=== PATIENT | female | born 1960 | race Caucasian/White ===

== ENCOUNTER 2018-05-12 17:43 | Outpatient (REF) | payer MEDICARE, MEDICAID, SELFPAY | END 2018-05-12 17:44 | LOC: NCHCN 17:43 | PROVIDERS: PCP Nurse Practitioner Family; Visit Provider Nurse Practitioner Family | DX: R82.79 Other abnormal findings on microbiological examination of urine (principal); F03.90 Unspecified dementia, unspecified severity, without behavioral disturbance, psychotic disturbance, mood disturbance, and anxiety | CPT/HCPCS: 87077; 87086 ==

== ENCOUNTER 2018-05-24 14:16 | Outpatient (REF) | payer MEDICARE, MEDICAID, SELFPAY ==
[2018-05-24 21:28] LABS: Bilirubin Negative (Negative); Blood Negative (Negative); Clarity Clear; Glucose Negative (Negative); Ketones Negative (Negative); Leukocyte Esterase Trace (Negative); Nitrite Negative (Negative); Specific Gravity 1.015 (1.005-1.025); Urobilinogen 0.2 EU/dL (Up TO 0.2)
[2018-05-24 22:06] LABS: WBC Negative HPF (0-5)
[2018-05-24 22:07] LABS: Epithelial Cells Moderate HPF (Negative); RBC Negative (0-2)
[2018-05-24 22:08] LABS: Bacteria Negative HPF (Negative); Casts Negative LPF (Negative); Mucus Negative (Negative); Other Cells Few Transitional (Negative)
[2018-05-24 22:10] LABS: C & S Indicated? No/Sq. Contamination; Crystals Many Amorphous HPF (Negative)
== END 2018-05-24 14:36 ==
LOC: NCHCN 14:16
PROVIDERS: PCP Nurse Practitioner Family; Visit Provider Nurse Practitioner Family
DX: R32 Unspecified urinary incontinence (principal)
CPT/HCPCS: 81003; 81015

== ENCOUNTER 2018-05-27 11:53 | Outpatient (REF) | payer MEDICARE, MEDICAID, SELFPAY | END 2018-05-27 12:13 | LOC: NCHCN 11:53 | PROVIDERS: PCP Nurse Practitioner Family; Visit Provider Nurse Practitioner Family | DX: N39.0 Urinary tract infection, site not specified (principal) | CPT/HCPCS: 87086 ==

== ENCOUNTER 2018-06-09 20:17 | Outpatient (REF) | payer MEDICARE, MEDICAID, SELFPAY | END 2018-06-09 20:37 | LOC: NCHCN 20:17 | PROVIDERS: PCP Nurse Practitioner Family; Visit Provider Nurse Practitioner Family | DX: N39.0 Urinary tract infection, site not specified (principal) | CPT/HCPCS: 87077; 87086; 87186 ==

== ENCOUNTER 2018-06-16 07:05 | Emergency (ER) | payer MEDICARE, MEDICAID, SELFPAY ==
[2018-06-16 07:08] VITALS: BP 90/57; PULSE 61; RESP 12; TEMP 36.8; O2SAT 97
--- NOTE | 2018-06-16 07:16 | W.ED.GENAD ---
Discharge Plan Disposition Patient Disposition: HOME Condition: Stable Discharge Details Chief Complaint: Seizure Clinical Impression: Seizure disorder Reason For Visit: NORMA Primary Care Provider: Andie Redman ED Provider: Brendon Mckeon Home Meds and New Rx's Prescriptions: Continue acetaminophen 325 MG tablet 650 mg PO Q4H PRN RF: 0 CLORTRIMAZOLE 1 % Topical BID RF: 0 trazodone 50 MG tablet 50 mg PO DAILY RF: 0 A&D ointment Topical DAILY RF: 0 hydrocortisone 28.35 GM cream 1 applic Topical DIRECTED RF: 0 bacitracin 3.5 GM ointment 3.5 gm DIRECTED RF: 0 calcium carbonate-simethicone [Maalox Advanced] 1 EACH tablet,chewable 1 ea PO DIRECTED RF: 0 MUCUS RELIEF 600 mg PO PRN RF: 0 Bifidobacterium infantis [Align] 4 MG capsule 4 mg PO DAILY RF: 0 metronidazole [Metrogel Vaginal] 70 GM gel 1 applic VG DAILY RF: 0 No Action carbamide peroxide [Ear Wax Treatment] 15 ML drops 4 drp Otic PRN RF: 0 polyethylene glycol 3350 [Miralax] 17 GM powder in packet 17 gm PO DAILY PRNRF: 0 dimethicone-zinc oxide [Leann Protect] 57 GM cream 57 gm Topical PRN RF: 0 topiramate [Topamax] 100 MG tablet 100 mg PO BID Qty: 60 RF: 11 psyllium husk (with sugar) [Metamucil (with sugar)] 575 GM powder 1 gm PO 1 TSB QD RF: 0 olanzapine 5 MG tablet 5 mg PO HS Qty: 30 RF: 5 trazodone 50 MG tablet 75 mg PO HS RF: 0 diphenhydramine HCl [Benadryl] 25 MG capsule 25 mg PO Q6H PRN RF: 0 carbamide peroxide [Debrox] 15 ML drops 15 ml Otic HS RF: 0 lanolin-mineral oil [Eucerin Original] 500 ML lotion 500 ml Topical BID RF: 0 clonazepam 0.125 MG tablet,disintegrating 0.125 mg PO as directed Qty: 10 RF: 0 perampanel 4 mg tablet 4 mg PO HS Qty: 30 RF: 5 calcium carbonate-vitamin D3 1 EACH tablet 1 ea PO DAILY RF: 0 levothyroxine 100 MCG tablet 100 mcg PO DAILY@0730 RF: 0 ondansetron HCl 4 mg Tablet 4 mg PO QID PRNRF: 0 docusate sodium [Colace] 100 mg Capsule 100 mg PO DAILY RF: 0 metronidazole 1 % Cream 1 applic TOPICAL DAILY RF: 0 guaifenesin 200 mg/5 mL Liquid 400 mg PO Q4H PRNRF: 0 Discharge Instructions Instructions: Recurrent Seizures in Adults (ED) Additional Instructions: Her seiuzre was likely indcued by her uti. She can have klonopin as needed for break through sezures she should follow up with her primary care provider within 1-2 weeks if she has high fevers, severe headaches or persistent vomit return to the emergency department Medical Decision Making <Robert Connor MD - Last Filed: 06/16/18 07:25> 58 yo female with hx of down syndrome, dementia, seizure disorder who comes in with caregivers by ems or seizures. She is on amoxicillin for a uti started this week per caregiver by pcp. She had a partial seizure per caregiver yesterday where she stares and right arm shakes yesterday and resolved after a minute or so. This morning she had 3 episodes lasting about 4 minutes so gave her several doses of oral klonopin which resolved the seizure. She is now back at ther baseline. She is moving all extremities and will intermittently answer some questions with one word or say hello, and is at baseline per the caregiver. She has nofevers or headache or neck stiffenss so doubt genetic physician infection and no signs of trauma, n/v or headache to suggest intracranial mass or tbi so do not feel ct head indicated. Will eval for electrolyte abnormalities and monitor but likely her uti lowered her seizure threshold pt will be signed out to Dr. Mckeon pending labs, if she remains stable and labs unremarkable feel she will be safe for d/c Differential Diagnosis uti, seizure disorder, electrolyte abnormality <Brendon Mckeon DO - Last Filed: 06/16/18 08:19> The patient has returned to her normal baseline. The case is signed out to me by Dr. Connor. Laboratory workup has returned and is benign. With a normal return to her mental baseline status, no significant laboratory abnormalities and normal vital signs I feel that she can be safely discharged home with close follow-up with her PCP and neurologist. I feel her increase in seizures is most likely secondary to her urinary tract infection and antibiotic medication. Recommended continued hydration at home, and close monitoring by family. We discussed red flags for which to return and they understand. I have extensively reviewed the treatment plan and discharge instructions with the patient and their family. I have addressed all patient concerns at this time. The patient and family was made aware of what symptoms to monitor for that would warrant a return to the emergency department. Discussed the plan with the patient and family, they demonstrate verbal understanding and agreement with our assessment and plan at this time. HPI <Robert Connor MD - Last Filed: 06/16/18 07:25> General Mode of arrival: EMS. Date/Time Provider Initiated Documentation: 06/16/18 07:13. Limitations to Documentation: other (dementia, down syndrome). Information obtained by: family (caregiver). History of Present Illness 58 year old F presents to the emergency department with the chief complaint of seizure, described as mild, with intensity rated at 2. Patient started experiencing this hour(s) (2) and it has been now resolved. No relieving factors improve symptom(s), No exacerbating factors reported . Patient did receive the following treatments prior to arrival, other (klonopin) Related Data Home Medications Medication Instructions Recorded Confirmed acetaminophen 650 mg PO Q4H PRN tab-cap NS 10/23/13 06/16/18 carbamide peroxide [Ear Wax 4 drp OTIC PRN script NS 10/23/13 06/16/18 Treatment] Clortrimazole 1 % TOPICAL BID 04/25/15 06/16/18 polyethylene glycol 3350 [Miralax] 17 gm PO DAILY PRN gm 04/25/15 06/16/18 trazodone 50 mg PO DAILY tab-cap 10/01/15 03/04/17 calcium carbonate-vitamin D3 1 ea PO DAILY 05/14/16 06/16/18 levothyroxine 100 mcg PO DAILY@0730 tab 06/19/16 06/16/18 Bifidobacterium infantis [Align] 4 mg PO DAILY 02/25/17 06/16/18 metronidazole [Metrogel Vaginal] 1 applic VG DAILY 02/25/17 03/04/17 dimethicone-zinc oxide [Leann 57 gm TOPICAL PRN 03/02/17 06/16/18 Protect] topiramate [Topamax] 100 mg PO BID #60 tab-cap 07/28/17 06/16/18 bacitracin 3.5 gm DIRECTED 12/16/17 06/16/18 hydrocortisone 1 applic TOPICAL DIRECTED gm 12/16/17 olanzapine 5 mg PO HS #30 tab-cap 12/16/17 06/16/18 psyllium husk (with sugar) 1 gm PO 1 TSB QD 12/16/17 06/16/18 [Metamucil Powder] calcium carbonate-simethicone 1 ea PO DIRECTED tab.chew 03/22/18 [Maalox Advanced] carbamide peroxide [Debrox] 15 ml OTIC HS script 03/22/18 06/16/18 diphenhydramine HCl [Benadryl] 25 mg PO Q6H PRN tab-cap 03/22/18 06/16/18 lanolin-mineral oil [Eucerin 500 ml TOPICAL BID 03/22/18 06/16/18 Original Lotion] trazodone 75 mg PO HS tab-cap 03/22/18 06/16/18 clonazepam 0.125 mg PO as directed #10 tab 04/13/18 06/16/18 perampanel 4 mg tablet 4 mg PO HS #30 tab 06/15/18 06/16/18 docusate sodium [Colace] 100 mg PO DAILY 06/16/18 06/16/18 guaifenesin 400 mg PO Q4H PRN 06/16/18 06/16/18 metronidazole 1 applic TOPICAL DAILY 06/16/18 06/16/18 ondansetron HCl 4 mg PO QID PRN 06/16/18 06/16/18 Previous Rx's Medication Instructions Recorded levothyroxine 100 mcg PO DAILY@0730 tab 06/19/16 topiramate [Topamax] 100 mg PO BID #60 tab-cap 07/28/17 olanzapine 5 mg PO HS #30 tab-cap 12/16/17 clonazepam 0.125 mg PO as directed #10 tab 04/13/18 perampanel 4 mg tablet 4 mg PO HS #30 tab 06/15/18 Allergies Allergy/AdvReac Type Severity Reaction Status Date / Time No Known Allergies Allergy Unverified 06/16/18 07:13 General Stated Complaint: Seizure COMPA: 3 Review of Systems <Robert Connor MD - Last Filed: 06/16/18 07:25> Review of Systems All systems reviewed & are unremarkable except as noted in HPI and below Constitutional Denies chills and Denies fever(s) Cardiovascular Denies dyspnea Respiratory Denies dyspnea Gastrointestinal Denies abdominal pain, Denies nausea and Denies vomiting Musculoskeletal Denies joint swelling Integumentary/Breasts Denies rash Allergic/Immunologic Reports urticaria Exam <Robert Connor MD - Last Filed: 06/16/18 07:25> Const General: no acute distress Orientation: alert HENMT Ears: external ears normal General nose exam: external nose normal Mouth: moist mucous membranes Eyes Pupils: PERRL and other (right pupil larger than left which is chronic and documented in prior charts) Neck Neck: normal visual inspection Resp Effort & Inspection: normal respiratory effort and able to speak in complete sentences Cardio Rate: regular rate Skin General skin exam: no rashes or lesions noted Neuro General: alert Extrem General: normal to inspection Course <Robert Connor MD - Last Filed: 06/16/18 07:25> Vital Signs Temperature 36.8 C 06/16/18 07:08 Pulse 61 06/16/18 07:08 Respiratory Rate 12 06/16/18 07:08 Blood Pressure 90/57 L 06/16/18 07:08 Pulse Oximetry 97 06/16/18 07:08 Temperature 36.8 C 06/16/18 07:08 Temperature Source Skin 06/16/18 07:08 Pulse 61 06/16/18 07:08 Respiratory Rate 12 06/16/18 07:08 Respiratory Effort 06/16/18 07:13 Respiratory Depth Normal 06/16/18 07:13 Respiratory Pattern Normal 06/16/18 07:13 Blood Pressure 90/57 L 06/16/18 07:08 Pulse Oximetry 97 06/16/18 07:08
[2018-06-16 07:40] LABS: Abs Immature Grans 0.03 k/cumm (0.0-0.09); Absolute Basophil Count 0.04 k/cumm (0.0-0.2); Absolute Eosinophil Count 0.04 k/cumm (0.0-0.7); Absolute Lymphocyte Count 1.91 k/cumm (1.2-3.4); Absolute Monocyte Count 0.47 k/cumm (0.11-0.7); Absolute Neutrophil Count 3.61 k/cumm (1.2-6.7); Basophils % 0.7; Eosinophils % 0.7; HCT 43.6 % (36.0-46.0); HGB 14.7 g/dL (12.0-15.5); Immature Grans % 0.5; Lymphocytes % 31.3; Mean Corp. HGB Concentration 33.7 g/dL (32.0-36.0); Mean Corpuscular Hemoglobin 34.7 pg (27.0-33.0); Mean Corpuscular Volume 102.8 fL (80-95); Mean Platelet Volume 9.7 fL (8.0-11.0); Monocytes % 7.7; Neutrophils % 59.1; Platelet Count 162 x1000/uL (130-400); RBC 4.24 m/cumm (4.00-5.20); RBC Distribution Width 14.3 % (11.7-14.6)
[2018-06-16 07:47] LABS: ALT 38 U/L (12-78); AST 28 U/L (15-37); Alkaline Phosphatase 80 U/L (46-116); Anion Gap 5.6 mmol/L (3-11); BUN 19 mg/dL (7-18); Bilirubin, Total 0.4 mg/dL (0.2-1.0); CO2 28.4 mmol/L (21.0-32.0); CREATININE 1.12 mg/dL (0.55-1.02); Calcium 8.6 mg/dL (8.5-10.1); Chloride 108 mmol/L (98-107); Estimated GFR 50.14 (mL/min/1.73m2); Glucose 82 mg/dL (70-100); Potassium 3.8 mmol/L (3.5-5.1); Sodium 142 mmol/L (136-145); Total Protein 6.5 g/dL (6.4-8.2)
== END 2018-06-16 08:31 | disposition home or self-care (01) ==
PROVIDERS: Emergency Medicine; Emergency Provider Student in an Organized Health Care Education/Training Program; PCP Nurse Practitioner Family
DX: G40.909 Epilepsy, unspecified, not intractable, without status epilepticus (principal); N39.0 Urinary tract infection, site not specified; I10 Essential (primary) hypertension; Q90.9 Down syndrome, unspecified
CPT/HCPCS: 36415; 80053; 93005; 99283; 85025; 93010

== ENCOUNTER 2018-06-20 04:04 | Emergency (ER) | payer MEDICARE, MEDICAID, SELFPAY ==
[2018-06-20 04:04] VITALS: BP 99/68; PULSE 60; RESP 13; TEMP 36.4; O2SAT 98
--- NOTE | 2018-06-20 04:22 | W.ED.GENAD ---
Discharge Plan Disposition Patient Disposition: HOME Condition: Stable Discharge Details Chief Complaint: Seizure Clinical Impression: Seizure disorder Reason For Visit: NORMA Primary Care Provider: Andie Redman ED Provider: Robert Connor [place] Meds and New Rx's Prescriptions: Continue acetaminophen 325 MG tablet 650 mg PO Q4H PRN RF: 0 carbamide peroxide [Ear Wax Treatment] 15 ML drops 4 drp Otic PRN RF: 0 polyethylene glycol 3350 [Miralax] 17 GM powder in packet 17 gm PO DAILY PRNRF: 0 CLORTRIMAZOLE 1 % Topical BID RF: 0 trazodone 50 MG tablet 50 mg PO DAILY RF: 0 dimethicone-zinc oxide [Leann Protect] 57 GM cream 57 gm Topical PRN RF: 0 topiramate [Topamax] 100 MG tablet 100 mg PO BID Qty: 60 RF: 11 A&D ointment Topical DAILY RF: 0 hydrocortisone 28.35 GM cream 1 applic Topical DIRECTED RF: 0 bacitracin 3.5 GM ointment 3.5 gm DIRECTED RF: 0 psyllium husk (with sugar) [Metamucil (with sugar)] 575 GM powder 1 gm PO 1 TSB QD RF: 0 olanzapine 5 MG tablet 5 mg PO HS Qty: 30 RF: 5 trazodone 50 MG tablet 75 mg PO HS RF: 0 diphenhydramine HCl [Benadryl] 25 MG capsule 25 mg PO Q6H PRN RF: 0 carbamide peroxide [Debrox] 15 ML drops 15 ml Otic HS RF: 0 lanolin-mineral oil [Eucerin Original] 500 ML lotion 500 ml Topical BID RF: 0 calcium carbonate-simethicone [Maalox Advanced] 1 EACH tablet,chewable 1 ea PO DIRECTED RF: 0 MUCUS RELIEF 600 mg PO PRN RF: 0 perampanel 4 mg tablet 4 mg PO HS Qty: 30 RF: 5 clonazepam 0.125 mg tablet,disintegrating 0.125 mg PO as directed Qty: 20 RF: 1 calcium carbonate-vitamin D3 1 EACH tablet 1 ea PO DAILY RF: 0 levothyroxine 100 MCG tablet 100 mcg PO DAILY@0730 RF: 0 Bifidobacterium infantis [Align] 4 MG capsule 4 mg PO DAILY RF: 0 metronidazole [Metrogel Vaginal] 70 GM gel 1 applic VG DAILY RF: 0 ondansetron HCl 4 mg Tablet 4 mg PO QID PRNRF: 0 docusate sodium [Colace] 100 mg Capsule 100 mg PO DAILY RF: 0 metronidazole 1 % Cream 1 applic TOPICAL DAILY RF: 0 guaifenesin 200 mg/5 mL Liquid 400 mg PO Q4H PRNRF: 0 perampanel [Fycompa] 0.5 mg/mL Suspension PO RF: 0 Discharge Instructions Instructions: Recurrent Seizures in Adults (ED) Discharge Data Discharge Physician: Robert Connor Medical Decision Making 58 yo female with hx of down syndrome, dementia, seizure disorder, who comes in with a seizure descrbied as staring and arm shaking for about 15 or so minutes prior to arrival. Was given klonopin during this and is now at baseline per the caretkaer, patient is alert and makes eye contact, doesn't follow most commands, will intermittently say few words. She has no fevers and is recently treated for uti.She appears well and is afebrile here so doubt air technician infection. No signs of head trauma and no persistent vomit or changes from baseline recently so do not feel head imaging indicated. Will monitor and check for electrolyte abnormalities labs unremarkable and she remains at her baseline, do not feel further w/u indicated at this time. I advised she f/u with her neurologist and return precautions given Differential Diagnosis seizure disorder, electrolyte abnoramlity HPI General Mode of arrival: EMS. Date/Time Provider Initiated Documentation: 06/20/18 04:07. 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 History of Present Illness 58 year old F presents to the emergency department with the chief complaint of seizure, Patient started experiencing this hour(s) (1) and it has been now resolved. No relieving factors improve symptom(s), No exacerbating factors reported . Patient did receive the following treatments prior to arrival, other (klonopin) Related Data Home Medications Medication Instructions Recorded Confirmed acetaminophen 650 mg PO Q4H PRN tab-cap NS 10/23/13 06/20/18 carbamide peroxide [Ear Wax 4 drp OTIC PRN script NS 10/23/13 06/20/18 Treatment] Clortrimazole 1 % TOPICAL BID 04/25/15 06/20/18 polyethylene glycol 3350 [Miralax] 17 gm PO DAILY PRN gm 04/25/15 06/20/18 trazodone 50 mg PO DAILY tab-cap 10/01/15 06/20/18 calcium carbonate-vitamin D3 1 ea PO DAILY 05/14/16 06/20/18 levothyroxine 100 mcg PO DAILY@0730 tab 06/19/16 06/20/18 Bifidobacterium infantis [Align] 4 mg PO DAILY 02/25/17 06/20/18 metronidazole [Metrogel Vaginal] 1 applic VG DAILY 02/25/17 06/20/18 dimethicone-zinc oxide [Leann 57 gm TOPICAL PRN 03/02/17 06/20/18 Protect] topiramate [Topamax] 100 mg PO BID #60 tab-cap 07/28/17 06/20/18 bacitracin 3.5 gm DIRECTED 12/16/17 06/20/18 hydrocortisone 1 applic TOPICAL DIRECTED gm 12/16/17 06/20/18 olanzapine 5 mg PO HS #30 tab-cap 12/16/17 06/20/18 psyllium husk (with sugar) 1 gm PO 1 TSB QD 12/16/17 06/20/18 [Metamucil (with sugar)] calcium carbonate-simethicone 1 ea PO DIRECTED tab.chew 03/22/18 06/20/18 [Maalox Advanced] carbamide peroxide [Debrox] 15 ml OTIC HS script 03/22/18 06/20/18 diphenhydramine HCl [Benadryl] 25 mg PO Q6H PRN tab-cap 03/22/18 06/20/18 lanolin-mineral oil [Eucerin 500 ml TOPICAL BID 03/22/18 06/20/18 Original] trazodone 75 mg PO HS tab-cap 03/22/18 06/20/18 perampanel 4 mg tablet 4 mg PO HS #30 tab 06/15/18 06/20/18 clonazepam 0.125 mg disintegrating 0.125 mg PO as directed #20 tab 06/16/18 06/20/18 tablet docusate sodium [Colace] 100 mg PO DAILY 06/16/18 06/20/18 guaifenesin 400 mg PO Q4H PRN 06/16/18 06/20/18 metronidazole 1 applic TOPICAL DAILY 06/16/18 06/20/18 ondansetron HCl 4 mg PO QID PRN 06/16/18 06/20/18 perampanel [Fycompa] mg PO 06/20/18 Previous Rx's Medication Instructions Recorded levothyroxine 100 mcg PO DAILY@0730 tab 06/19/16 topiramate [Topamax] 100 mg PO BID #60 tab-cap 07/28/17 olanzapine 5 mg PO HS #30 tab-cap 12/16/17 perampanel 4 mg tablet 4 mg PO HS #30 tab 06/15/18 clonazepam 0.125 mg disintegrating 0.125 mg PO as directed #20 tab 06/16/18 tablet Allergies Allergy/AdvReac Type Severity Reaction Status Date / Time No Known Allergies Allergy Unverified 06/20/18 04:07 General Stated Complaint: Seizure COMPA: 3 Review of Systems Review of Systems Unobtainable due to mental condition Constitutional Denies fever(s) Cardiovascular Denies dyspnea Respiratory Denies dyspnea Gastrointestinal Denies vomiting Integumentary/Breasts Denies rash Exam Const General: no acute distress Orientation: alert HENOR Head: normal to inspection Ears: external ears normal General nose exam: external nose normal Mouth: moist mucous membranes Eyes Pupils: PERRL and other (right pupil larger than right pupil, chronic per chart review) Neck Neck: normal visual inspection Resp Effort & Inspection: normal respiratory effort and able to speak in complete sentences Cardio Rate: regular rate Skin General skin exam: no rashes or lesions noted Neuro General: alert Extrem General: normal to inspection Psych Mental Status: mental status grossly normal Course Vital Signs Temperature 36.4 C L 06/20/18 04:04 Pulse 60 06/20/18 04:04 Respiratory Rate 13 06/20/18 04:04 Blood Pressure 99/68 L 06/20/18 04:04 Pulse Oximetry 98 06/20/18 04:04 Temperature 36.4 C L 06/20/18 04:04 Temperature Source Temporal Artery Scan 06/20/18 04:04 Pulse 60 06/20/18 04:04 Respiratory Rate 13 06/20/18 04:04 Respiratory Effort Non-Labored 06/20/18 04:10 Respiratory Depth Normal 06/20/18 04:10 Respiratory Pattern Normal 06/20/18 04:10 Blood Pressure 99/68 L 06/20/18 04:04 Blood Pressure Position Sitting 06/20/18 04:04 Pulse Oximetry 98 06/20/18 04:04 Oxygen Delivery Method Room Air 06/20/18 04:04 Oxygen Flow Rate 0 06/20/18 04:04
--- NOTE | 2018-06-20 04:28 | ED.GENADUL_ITS ---
Discharge Plan Disposition Patient Disposition: HOME Condition: Stable Discharge Details Chief Complaint: Seizure Clinical Impression: Seizure disorder Reason For Visit: NORMA Primary Care Provider: Andie Redman ED Provider: Robert Connor [place] Meds and New Rx's Prescriptions: Continue acetaminophen 325 MG tablet 650 mg PO Q4H PRN RF: 0 carbamide peroxide [Ear Wax Treatment] 15 ML drops 4 drp Otic PRN RF: 0 polyethylene glycol 3350 [Miralax] 17 GM powder in packet 17 gm PO DAILY PRNRF: 0 CLORTRIMAZOLE 1 % Topical BID RF: 0 trazodone 50 MG tablet 50 mg PO DAILY RF: 0 dimethicone-zinc oxide [Leann Protect] 57 GM cream 57 gm Topical PRN RF: 0 topiramate [Topamax] 100 MG tablet 100 mg PO BID Qty: 60 RF: 11 A&D ointment Topical DAILY RF: 0 hydrocortisone 28.35 GM cream 1 applic Topical DIRECTED RF: 0 bacitracin 3.5 GM ointment 3.5 gm DIRECTED RF: 0 psyllium husk (with sugar) [Metamucil (with sugar)] 575 GM powder 1 gm PO 1 TSB QD RF: 0 olanzapine 5 MG tablet 5 mg PO HS Qty: 30 RF: 5 trazodone 50 MG tablet 75 mg PO HS RF: 0 diphenhydramine HCl [Benadryl] 25 MG capsule 25 mg PO Q6H PRN RF: 0 carbamide peroxide [Debrox] 15 ML drops 15 ml Otic HS RF: 0 lanolin-mineral oil [Eucerin Original] 500 ML lotion 500 ml Topical BID RF: 0 calcium carbonate-simethicone [Maalox Advanced] 1 EACH tablet,chewable 1 ea PO DIRECTED RF: 0 MUCUS RELIEF 600 mg PO PRN RF: 0 perampanel 4 mg tablet 4 mg PO HS Qty: 30 RF: 5 clonazepam 0.125 mg tablet,disintegrating 0.125 mg PO as directed Qty: 20 RF: 1 calcium carbonate-vitamin D3 1 EACH tablet 1 ea PO DAILY RF: 0 levothyroxine 100 MCG tablet 100 mcg PO DAILY@0730 RF: 0 Bifidobacterium infantis [Align] 4 MG capsule 4 mg PO DAILY RF: 0 metronidazole [Metrogel Vaginal] 70 GM gel 1 applic VG DAILY RF: 0 ondansetron HCl 4 mg Tablet 4 mg PO QID PRNRF: 0 docusate sodium [Colace] 100 mg Capsule 100 mg PO DAILY RF: 0 metronidazole 1 % Cream 1 applic TOPICAL DAILY RF: 0 guaifenesin 200 mg/5 mL Liquid 400 mg PO Q4H PRNRF: 0 perampanel [Fycompa] 0.5 mg/mL Suspension PO RF: 0 Discharge Instructions Instructions: Recurrent Seizures in Adults (ED) Discharge Data Discharge Physician: Robert Connor Medical Decision Making 58 yo female with hx of down syndrome, dementia, seizure disorder, who comes in with a seizure descrbied as staring and arm shaking for about 15 or so minutes prior to arrival. Was given klonopin during this and is now at baseline per the caretkaer, patient is alert and makes eye contact, doesn't follow most commands, will intermittently say few words. She has no fevers and is recently treated for uti.She appears well and is afebrile here so doubt electronics department manager infection. No signs of head trauma and no persistent vomit or changes from baseline recently so do not feel head imaging indicated. Will monitor and check for electrolyte abnormalities labs unremarkable and she remains at her baseline, do not feel further w/u indicated at this time. I advised she f/u with her neurologist and return precautions given Differential Diagnosis seizure disorder, electrolyte abnoramlity HPI General Mode of arrival: EMS . Date/Time Provider Initiated Documentation: 06/20/18 04:07 . 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 History of Present Illness 58 year old F presents to the emergency department with the chief complaint of seizure, Patient started experiencing this hour(s) (1) and it has been now resolved. No relieving factors improve symptom(s), No exacerbating factors reported . Patient did receive the following treatments prior to arrival, other (klonopin) Related Data Home Medications Medication Instructions Recorded Confirmed acetaminophen 650 mg PO Q4H PRN tab-cap NS 10/23/13 06/20/18 carbamide peroxide [Ear Wax 4 drp OTIC PRN script NS 10/23/13 06/20/18 Treatment] Clortrimazole 1 % TOPICAL BID 04/25/15 06/20/18 polyethylene glycol 3350 [Miralax] 17 gm PO DAILY PRN gm 04/25/15 06/20/18 trazodone 50 mg PO DAILY tab-cap 10/01/15 06/20/18 calcium carbonate-vitamin D3 1 ea PO DAILY 05/14/16 06/20/18 levothyroxine 100 mcg PO DAILY@0730 tab 06/19/16 06/20/18 Bifidobacterium infantis [Align] 4 mg PO DAILY 02/25/17 06/20/18 metronidazole [Metrogel Vaginal] 1 applic VG DAILY 02/25/17 06/20/18 dimethicone-zinc oxide [Leann 57 gm TOPICAL PRN 03/02/17 06/20/18 Protect] topiramate [Topamax] 100 mg PO BID #60 tab-cap 07/28/17 06/20/18 bacitracin 3.5 gm DIRECTED 12/16/17 06/20/18 hydrocortisone 1 applic TOPICAL DIRECTED gm 12/16/17 06/20/18 olanzapine 5 mg PO HS #30 tab-cap 12/16/17 06/20/18 psyllium husk (with sugar) 1 gm PO 1 TSB QD 12/16/17 06/20/18 [Metamucil (with sugar)] calcium carbonate-simethicone 1 ea PO DIRECTED tab.chew 03/22/18 06/20/18 [Maalox Advanced] carbamide peroxide [Debrox] 15 ml OTIC HS script 03/22/18 06/20/18 diphenhydramine HCl [Benadryl] 25 mg PO Q6H PRN tab-cap 03/22/18 06/20/18 lanolin-mineral oil [Eucerin 500 ml TOPICAL BID 03/22/18 06/20/18 Original] trazodone 75 mg PO HS tab-cap 03/22/18 06/20/18 perampanel 4 mg tablet 4 mg PO HS #30 tab 06/15/18 06/20/18 clonazepam 0.125 mg disintegrating 0.125 mg PO as directed #20 tab 06/16/1804/30 tablet docusate sodium [Colace] 100 mg PO DAILY 06/16/18 06/20/18 guaifenesin 400 mg PO Q4H PRN 06/16/18 06/20/18 metronidazole 1 applic TOPICAL DAILY 06/16/18 06/20/18 ondansetron HCl 4 mg PO QID PRN 06/16/18 06/20/18 perampanel [Fycompa] mg PO 06/20/18 Previous Rx's Medication Instructions Recorded levothyroxine 100 mcg PO DAILY@0730 tab 06/19/16 topiramate [Topamax] 100 mg PO BID #60 tab-cap 07/28/17 olanzapine 5 mg PO HS #30 tab-cap 12/16/17 perampanel 4 mg tablet 4 mg PO HS #30 tab 06/15/18 clonazepam 0.125 mg disintegrating 0.125 mg PO as directed #20 tab 06/16/18 tablet Allergies Allergy/AdvReac Type Severity Reaction Status Date / Time No Known Allergies Allergy Unverified 06/20/18 04:07 General Stated Complaint: Seizure COMPA: 3 Review of Systems Review of Systems Unobtainable due to mental condition Constitutional Denies fever(s) Cardiovascular Denies dyspnea Respiratory Denies dyspnea Gastrointestinal Denies vomiting Integumentary/Breasts Denies rash Exam Const General: no acute distress Orientation: alert [place]ENW[place] Head: normal to inspection Ears: external ears normal General nose exam: external nose normal Mouth: moist mucous membranes Eyes Pupils: PERRL and other (right pupil larger than right pupil, chronic per chart review) Neck Neck: normal visual inspection Resp Effort & Inspection: normal respiratory effort and able to speak in complete sentences Cardio Rate: regular rate Skin General skin exam: no rashes or lesions noted Neuro General: alert Extrem General: normal to inspection Psych Mental Status: mental status grossly normal Course Vital Signs Temperature 36.4 C L 06/20/18 04:04 Pulse 60 06/20/18 04:04 Respiratory Rate 13 06/20/18 04:04 Blood Pressure 99/68 L 06/20/18 04:04 Pulse Oximetry 98 06/20/18 04:04 Temperature 36.4 C L 06/20/18 04:04 Temperature Source Temporal Artery Scan 06/20/18 04:04 Pulse 60 06/20/18 04:04 Respiratory Rate 13 06/20/18 04:04 Respiratory Effort Non-Labored 06/20/18 04:10 Respiratory Depth Normal 06/20/18 04:10 Respiratory Pattern Normal 06/20/18 04:10 Blood Pressure 99/68 L 06/20/18 04:04 Blood Pressure Position Sitting 06/20/18 04:04 Pulse Oximetry 98 06/20/18 04:04 Oxygen Delivery Method Room Air 06/20/18 04:04 Oxygen Flow Rate 0 06/20/18 04:04
[2018-06-20 04:40] LABS: Abs Immature Grans 0.02 k/cumm (0.0-0.09); Absolute Basophil Count 0.03 k/cumm (0.0-0.2); Absolute Eosinophil Count 0.05 k/cumm (0.0-0.7); Absolute Lymphocyte Count 1.96 k/cumm (1.2-3.4); Absolute Monocyte Count 0.47 k/cumm (0.11-0.7); Absolute Neutrophil Count 5.02 k/cumm (1.2-6.7); Anion Gap 8.3 mmol/L (3-11); BUN 18 mg/dL (7-18); Basophils % 0.4; CO2 25.7 mmol/L (21.0-32.0); CREATININE 1.02 mg/dL (0.55-1.02); Calcium 8.2 mg/dL (8.5-10.1); Chloride 107 mmol/L (98-107); Eosinophils % 0.7; Estimated GFR 55.86 (mL/min/1.73m2); Glucose 100 mg/dL (70-100); HCT 46.4 % (36.0-46.0); HGB 15.4 g/dL (12.0-15.5); Immature Grans % 0.3; Mean Corp. HGB Concentration 33.2 g/dL (32.0-36.0); Mean Corpuscular Hemoglobin 34.1 pg (27.0-33.0); Mean Corpuscular Volume 102.7 fL (80-95); Mean Platelet Volume 9.8 fL (8.0-11.0); Monocytes % 6.2; Neutrophils % 66.4; Platelet Count 168 x1000/uL (130-400); RBC 4.52 m/cumm (4.00-5.20); RBC Distribution Width 13.9 % (11.7-14.6); Sodium 141 mmol/L (136-145); White Blood Cell Count 7.55 k/cumm (4.4-10.8)
[2018-06-20 06:26] VITALS: BP 99/68; PULSE 60; RESP 13; TEMP 36.4; O2SAT 98
== END 2018-06-20 04:56 | disposition home or self-care (01) ==
PROVIDERS: Emergency Provider Emergency Medicine; PCP Nurse Practitioner Family
DX: G40.909 Epilepsy, unspecified, not intractable, without status epilepticus (principal); I10 Essential (primary) hypertension
CPT/HCPCS: 36415; 80048; 93005; 99284; 85025; 93010

== ENCOUNTER → 2018-06-28 10:36 | Outpatient (BNVA) | payer MEDICARE, MEDICAID, SELFPAY | PROVIDERS: PCP Nurse Practitioner Family; Visit Provider Nurse Practitioner Gerontology | DX: R32 Unspecified urinary incontinence (principal); Z87.440 Personal history of urinary (tract) infections | CPT/HCPCS: 81003; 99204; 99215 ==

== ENCOUNTER 2018-06-28 15:24 | Outpatient (REF) | payer MEDICARE, MEDICAID, SELFPAY | END 2018-06-28 15:44 | LOC: LBN 15:24 | PROVIDERS: PCP Nurse Practitioner Family; Visit Provider Nurse Practitioner Gerontology | DX: Z87.440 Personal history of urinary (tract) infections (principal); N39.0 Urinary tract infection, site not specified | CPT/HCPCS: 87086 ==

== ENCOUNTER 2018-06-30 17:14 | Outpatient (REF) | payer MEDICARE, MEDICAID, SELFPAY ==
[2018-06-30 20:32] LABS: Abs Immature Grans 0.03 k/cumm (0.0-0.09); Absolute Basophil Count 0.04 k/cumm (0.0-0.2); Absolute Eosinophil Count 0.06 k/cumm (0.0-0.7); Absolute Lymphocyte Count 2.57 k/cumm (1.2-3.4); Absolute Monocyte Count 0.48 k/cumm (0.11-0.7); Absolute Neutrophil Count 6.16 k/cumm (1.2-6.7); Basophils % 0.4; Eosinophils % 0.6; HCT 46.4 % (36.0-46.0); HGB 15.9 g/dL (12.0-15.5); Immature Grans % 0.3; Lymphocytes % 27.5; Mean Corp. HGB Concentration 34.3 g/dL (32.0-36.0); Mean Corpuscular Hemoglobin 34.6 pg (27.0-33.0); Mean Corpuscular Volume 101.1 fL (80-95); Mean Platelet Volume 10.3 fL (8.0-11.0); Monocytes % 5.1; Neutrophils % 66.1; Platelet Count 203 x1000/uL (130-400); RBC 4.59 m/cumm (4.00-5.20); RBC Distribution Width 14.4 % (11.7-14.6); White Blood Cell Count 9.34 k/cumm (4.4-10.8)
[2018-06-30 20:56] LABS: ALT 36 U/L (12-78); AST 23 U/L (15-37); Albumin 3.4 g/dL (3.4-5.0); Alkaline Phosphatase 92 U/L (46-116); Anion Gap 8.6 mmol/L (3-11); BUN 16 mg/dL (7-18); Bilirubin, Total 0.2 mg/dL (0.2-1.0); CO2 28.4 mmol/L (21.0-32.0); CREATININE 0.99 mg/dL (0.55-1.02); Calcium 8.7 mg/dL (8.5-10.1); Chloride 107 mmol/L (98-107); Estimated GFR 57.82 (mL/min/1.73m2); Glucose 93 mg/dL (70-100); Potassium 3.8 mmol/L (3.5-5.1); Sodium 144 mmol/L (136-145); TSH (W/Ref FT4) 2.07 uIU/mL (0.358-3.74); Total Protein 6.9 g/dL (6.4-8.2)
== END 2018-06-30 17:34 ==
LOC: NCHCN 17:14
PROVIDERS: PCP Nurse Practitioner Family; Visit Provider Nurse Practitioner Family
DX: R00.1 Bradycardia, unspecified (principal); F03.90 Unspecified dementia, unspecified severity, without behavioral disturbance, psychotic disturbance, mood disturbance, and anxiety; R56.9 Unspecified convulsions; E78.5 Hyperlipidemia, unspecified; E87.1 Hypo-osmolality and hyponatremia; Q90.9 Down syndrome, unspecified
CPT/HCPCS: 80053; 84443; 85025

== ENCOUNTER → 2018-07-05 14:05 | Outpatient (BNVA) | payer MEDICARE, MEDICAID, SELFPAY | PROVIDERS: PCP Nurse Practitioner Family; Visit Provider Psychiatry & Neurology Neurology | DX: G30.0 Alzheimer's disease with early onset (principal); F02.81 Dementia in other diseases classified elsewhere, unspecified severity, with behavioral disturbance | CPT/HCPCS: 99214 ==

== ENCOUNTER 2018-07-05 15:10 | Outpatient (CLI) | payer MEDICARE, MEDICAID, SELFPAY ==
--- NOTE | 2018-07-05 15:10 | DI.CT_ITS ---
SYMPTOMS/DIAGNOSIS: INCREASED SEIZURES/SOMNOLENCE, R56.9 UNSPECIFIED CONVULSIONS NONCONTRAST HEAD CT: Comparison is made with April,. The basal ganglia calcifications are again noted. There is also calcification along the gyri of the posterior occipitoparietal region, also unchanged. No acute hemorrhage, mass or infarct is seen. The ventricles are unchanged in size. IMPRESSION: Stable parenchymal calcifications. No evidence of mass, infarct or hemorrhage.
== END 2018-07-05 15:30 ==
PROVIDERS: PCP Nurse Practitioner Family; Visit Provider Psychiatry & Neurology Neurology
DX: R56.9 Unspecified convulsions (principal); G30.0 Alzheimer's disease with early onset; F02.81 Dementia in other diseases classified elsewhere, unspecified severity, with behavioral disturbance; Q90.9 Down syndrome, unspecified; G40.109 Localization-related (focal) (partial) symptomatic epilepsy and epileptic syndromes with simple partial seizures, not intractable, without status epilepticus
CPT/HCPCS: 99214; 70450

== ENCOUNTER 2018-07-06 02:13 | Outpatient (CLI) | payer MEDICARE, MEDICAID, SELFPAY | END 2018-07-06 02:33 | PROVIDERS: PCP Nurse Practitioner Family; Visit Provider Nurse Practitioner Family | DX: R00.1 Bradycardia, unspecified (principal); I49.1 Atrial premature depolarization; I49.3 Ventricular premature depolarization | CPT/HCPCS: 93225 ==

== ENCOUNTER 2018-07-08 16:39 | Outpatient (CLI) | payer MEDICARE, MEDICAID, SELFPAY ==
--- NOTE | 2018-07-11 16:55 | HOLTER_ITS ---
DATE OF READING: July 11, 2018 48-hour study. Baseline rhythm sinus. Rare single PAC. No SVT or atrial fibrillation. Rare single PVC. One couplet. No VT. Nocturnal heart rates as low at 45-50 bpm, sinus bradycardia. No symptoms. Average 1-minute heart rate 67 bpm, rate 49-126 bpm.
== END 2018-07-08 16:59 ==
PROVIDERS: PCP Nurse Practitioner Family; Visit Provider Nurse Practitioner Family
DX: R00.1 Bradycardia, unspecified (principal); I49.1 Atrial premature depolarization; I49.3 Ventricular premature depolarization
CPT/HCPCS: 93226

== ENCOUNTER 2018-07-11 10:52 | Outpatient (CLI) | payer MEDICARE, MEDICAID, SELFPAY | END 2018-07-11 11:12 | PROVIDERS: PCP Nurse Practitioner Family; Visit Provider Internal Medicine Interventional Cardiology | DX: R00.1 Bradycardia, unspecified (principal); I49.1 Atrial premature depolarization; I49.3 Ventricular premature depolarization | CPT/HCPCS: 93227 ==

== ENCOUNTER 2018-07-14 01:58 | Outpatient (CLI) | payer MEDICARE, MEDICAID, SELFPAY ==
--- NOTE | 2018-07-15 09:14 | PDOC.EEG ---
EEG: [facility] Department of Neurology EEG REPORT Date of Recordin07/14/18 Interpreting Physician: Dr. Ayse Villafana PCP/Referring Provider: Andie Redman NP Reason for study: Ms. Burr is a 58 year-old woman with Down Syndrome, Alzheimer's Dementia, and epilepsy with recent increase in seizure activity and mental status decline. Current Medications: acetaminophen 650 mg PO Q4H PRN tab-cap NS 10/23/13 carbamide peroxide [Ear Wax Treatment] 4 drp OTIC PRN script NS 10/23/13 Clortrimazole 1 % TOPICAL BID 04/25/15 polyethylene glycol 3350 [Miralax] 17 gm PO DAILY PRN gm 04/25/15 trazodone 50 mg PO DAILY tab-cap 10/01/15 calcium carbonate-vitamin D3 1 ea PO DAILY 05/14/16 levothyroxine 100 mcg PO DAILY@0730 tab 06/19/16 Bifidobacterium infantis [Align] 4 mg PO DAILY 02/25/17 metronidazole [Metrogel Vaginal] 1 applic VG DAILY 02/25/17 dimethicone-zinc oxide [Leann Protect] 57 gm TOPICAL PRN 03/02/17 topiramate [Topamax] 100 mg PO BID #60 tab-cap 07/28/17 A&D Ointment 0 TOPICAL DAILY 12/16/17 bacitracin 3.5 gm DIRECTED 12/16/17 hydrocortisone 1 applic TOPICAL DIRECTED gm 12/16/17 psyllium husk (with sugar) [Metamucil (with sugar)] 1 gm PO 1 TSB QD 12/16/17 calcium carbonate-simethicone [Maalox Advanced] 1 ea PO DIRECTED tab.chew 03/22/18 carbamide peroxide [Debrox] 15 ml OTIC HS script 03/22/18 diphenhydramine HCl [Benadryl] 25 mg PO Q6H PRN tab-cap 03/22/18 lanolin-mineral oil [Eucerin Original] 500 ml TOPICAL BID 03/22/18 trazodone 75 mg PO HS tab-cap 03/22/18 docusate sodium [Colace] 100 mg PO DAILY 06/16/18 guaifenesin 400 mg PO Q4H PRN 06/16/18 metronidazole 1 applic TOPICAL DAILY 06/16/18 perampanel [Fycompa] mg PO 06/20/18 clonazepam 0.125 mg disintegrating tablet 0.125 mg PO as directed #20 tab 06/21/18 perampanel 6 mg tablet 6 mg PO HS #90 tab 06/21/18 aluminum-mag hydroxide-simethicone 200 mg-200 mg-20 mg/5 mL oral susp 5 ml PO ONCE PRN 07/05/18 calamine lotion applic TP PRN 07/05/18 olanzapine 5 mg tablet 2.5 mg PO HS tab-cap 07/05/18 METHODS: A 21 channel digitized electroencephalogram was performed in the [facility] Clinical Neurophysiology Laboratory. The 10/20 international system of electrode placement was used and bipolar and referential electrode montages were recorded. In addition to EEG the patient was monitored for EKG and lateral/vertical eye movements. Activation procedures of photic stimulation and hyperventilation were performed if applicable. Video was used during activation procedures and during events where applicable. The duration of the recording was 30 minutes. DESCRIPTION OF EEG: The patient was noted to be awake, drowsy, and asleep during the recording. During maximal wakefulness an 8-Hz posterior background rhythm was present which was poorly-modulated, symmetrical, reactive to eye opening, and of moderate voltage. With eye opening the background activity changed to a low voltage mixture of theta and delta range frequencies. Faster frequencies were present in the bilateral anterior head regions. There was a normal anterior-posterior voltage gradient. During drowsiness, there was attenuation of the posterior dominant background rhythm and vertex waves. Stage II sleep was present with symmetrical sleep spindles and vertex waves. There were occasional, moderate-amplitude, left frontal spike-wave discharges (Fp1>F7). Activating Procedures: Photic stimulation was performed which produced no posterior driving response at various flash frequencies. Hyperventilation was not performed. EKG: EKG revealed normal sinus rhythm. INTERPRETATION: This EEG is abnormal due to: #1. Occasional left frontal spike-wave discharges (Fp1>F7). #2. Mild-moderate generalized slowing throughout with slowing of the posterior dominant rhythm. PRIOR EEG: -February 2015: rare right frontal spike-waves and mild generalized slowing. CLINICAL CORRELATION: This recording represents the interictal expression of a localization-related epilepsy and indicates the patient is at increased risk for partial and secondary tonic-clonic seizures. The background slowing is suggestive of a mild-moderate diffuse cerebral encephalopathy of broad differential including toxic-metabolic etiology. Clinical correlation is advised. Ayse Villafana MD cc: Andie Redman NP
--- NOTE | 2018-07-15 09:22 | PDOC.EEG_ITS ---
EEG: [facility] Department of Neurology EEG REPORT Date of Recordin07/14/18 Interpreting Physician: Dr. Ayse Villafana PCP/Referring Provider: Andie Redman NP Reason for study: Ms. Burr is a 58 year-old woman with Down Syndrome, Alzheimer's Dementia, and epilepsy with recent increase in seizure activity and mental status decline. Current Medications: acetaminophen 650 mg PO Q4H PRN tab-cap NS 10/23/13 carbamide peroxide [Ear Wax Treatment] 4 drp OTIC PRN script NS 10/23/13 Clortrimazole 1 % TOPICAL BID 04/25/15 polyethylene glycol 3350 [Miralax] 17 gm PO DAILY PRN gm 04/25/15 trazodone 50 mg PO DAILY tab-cap 10/01/15 calcium carbonate-vitamin D3 1 ea PO DAILY 05/14/16 levothyroxine 100 mcg PO DAILY@0730 tab 06/19/16 Bifidobacterium infantis [Align] 4 mg PO DAILY 02/25/17 metronidazole [Metrogel Vaginal] 1 applic VG DAILY 02/25/17 dimethicone-zinc oxide [Leann Protect] 57 gm TOPICAL PRN 03/02/17 topiramate [Topamax] 100 mg PO BID #60 tab-cap 07/28/17 A&D Ointment 0 TOPICAL DAILY 12/16/17 bacitracin 3.5 gm DIRECTED 12/16/17 hydrocortisone 1 applic TOPICAL DIRECTED gm 12/16/17 psyllium husk (with sugar) [Metamucil (with sugar)] 1 gm PO 1 TSB QD 12/16/17 calcium carbonate-simethicone [Maalox Advanced] 1 ea PO DIRECTED tab.chew carbamide peroxide [Debrox] 15 ml OTIC HS script 03/22/18 diphenhydramine HCl [Benadryl] 25 mg PO Q6H PRN tab-cap 03/22/18 lanolin-mineral oil [Eucerin Original] 500 ml TOPICAL BID 03/22/18 trazodone 75 mg PO HS tab-cap 03/22/18 docusate sodium [Colace] 100 mg PO DAILY 06/16/18 guaifenesin 400 mg PO Q4H PRN 06/16/18 metronidazole 1 applic TOPICAL DAILY 06/16/18 perampanel [Fycompa] mg PO 06/20/18 clonazepam 0.125 mg disintegrating tablet 0.125 mg PO as directed #20 tab perampanel 6 mg tablet 6 mg PO HS #90 tab 06/21/18 aluminum-mag hydroxide-simethicone 200 mg-200 mg-20 mg/5 mL oral susp 5 ml PO ONCE PRN 07/05/18 calamine lotion applic TP PRN 07/05/18 olanzapine 5 mg tablet 2.5 mg PO HS tab-cap 07/05/18 METHODS: A 21 channel digitized electroencephalogram was performed in the [facility]. The 10/20 international system of electrode placement was used and bipolar and referential electrode montages were recorded. In addition to EEG the patient was monitored for EKG and lateral/vertical eye movements. Activation procedures of photic stimulation and hyperventilation were performed if applicable. Video was used during activation procedures and during events where applicable. The duration of the recording was 30 minutes. DESCRIPTION OF EEG: The patient was noted to be awake, drowsy, and asleep during the recording. During maximal wakefulness an 8-Hz posterior background rhythm was present which was poorly-modulated, symmetrical, reactive to eye opening, and of moderate voltage. With eye opening the background activity changed to a low voltage mixture of theta and delta range frequencies. Faster frequencies were present in the bilateral anterior head regions. There was a normal anterior- posterior voltage gradient. During drowsiness, there was attenuation of the posterior dominant background rhythm and vertex waves. Stage II sleep was present with symmetrical sleep spindles and vertex waves. There were occasional, moderate-amplitude, left frontal spike-wave discharges ( Fp1>F7). Activating Procedures: Photic stimulation was performed which produced no posterior driving response at various flash frequencies. Hyperventilation was not performed. EKG: EKG revealed normal sinus rhythm. INTERPRETATION: This EEG is abnormal due to: #1. Occasional left frontal spike-wave discharges (Fp1>F7). #2. Mild-moderate generalized slowing throughout with slowing of the posterior dominant rhythm. PRIOR EEG: -February 2015: rare right frontal spike-waves and mild generalized slowing. CLINICAL CORRELATION: This recording represents the interictal expression of a localization-related epilepsy and indicates the patient is at increased risk for partial and secondary tonic-clonic seizures. The background slowing is suggestive of a mild -moderate diffuse cerebral encephalopathy of broad differential including toxic- metabolic etiology. Clinical correlation is advised. Ayse Villafana MD cc: Andie Redman NP
== END 2018-07-14 02:18 ==
PROVIDERS: PCP Nurse Practitioner Family; Visit Provider Psychiatry & Neurology Neurology
DX: R56.9 Unspecified convulsions (principal)
CPT/HCPCS: 95819

== ENCOUNTER → 2018-07-15 13:09 | Outpatient (BNVA) | payer MEDICARE, MEDICAID, SELFPAY | PROVIDERS: PCP Nurse Practitioner Family; Visit Provider Psychiatry & Neurology Neurology | DX: R69 Illness, unspecified (principal) ==

== ENCOUNTER → 2018-07-18 10:35 | Outpatient (BNVA) | payer MEDICARE, MEDICAID, SELFPAY | PROVIDERS: PCP Nurse Practitioner Family; Visit Provider Psychiatry & Neurology Neurology | DX: G30.0 Alzheimer's disease with early onset (principal); Q90.9 Down syndrome, unspecified; G40.109 Localization-related (focal) (partial) symptomatic epilepsy and epileptic syndromes with simple partial seizures, not intractable, without status epilepticus; F02.81 Dementia in other diseases classified elsewhere, unspecified severity, with behavioral disturbance | CPT/HCPCS: 99214 ==

== ENCOUNTER 2018-07-19 07:56 | Emergency (ER) | payer MEDICARE, MEDICAID, SELFPAY ==
[2018-07-19] VITALS (23 sets, daily range): BP systolic 99–151; BP diastolic 51–75; PULSE 63–112; RESP 18; TEMP 36.7; O2SAT 91–98
[2018-07-19] MEDS: Normal Saline 1,000 ML 1000 ML IV ×2 (08:20→09:38)
[2018-07-19 08:25] LABS: Abs Immature Grans 0.01 k/cumm (0.0-0.09); Absolute Basophil Count 0.04 k/cumm (0.0-0.2); Absolute Eosinophil Count 0.05 k/cumm (0.0-0.7); Absolute Lymphocyte Count 2.11 k/cumm (1.2-3.4); Absolute Neutrophil Count 4.56 k/cumm (1.2-6.7); Basophils % 0.6; Eosinophils % 0.7; HCT 49.2 % (36.0-46.0); HGB 16.3 g/dL (12.0-15.5); Immature Grans % 0.1; Lymphocytes % 29.8; Mean Corp. HGB Concentration 33.1 g/dL (32.0-36.0); Mean Corpuscular Hemoglobin 34.2 pg (27.0-33.0); Mean Corpuscular Volume 103.1 fL (80-95); Mean Platelet Volume 9.6 fL (8.0-11.0); Monocytes % 4.2; Neutrophils % 64.6; Platelet Count 176 x1000/uL (130-400); RBC 4.77 m/cumm (4.00-5.20); RBC Distribution Width 14.3 % (11.7-14.6); White Blood Cell Count 7.07 k/cumm (4.4-10.8)
[2018-07-19 08:46] LABS: ALT 39 U/L (12-78); AST 26 U/L (15-37); Albumin 3.4 g/dL (3.4-5.0); Alkaline Phosphatase 82 U/L (46-116); Anion Gap 7.9 mmol/L (3-11); BUN 23 mg/dL (7-18); Bilirubin, Total 0.5 mg/dL (0.2-1.0); CO2 28.1 mmol/L (21.0-32.0); CREATININE 1.34 mg/dL (0.55-1.02); Chloride 105 mmol/L (98-107); Estimated GFR 40.77 (mL/min/1.73m2); Glucose 114 mg/dL (70-100); Magnesium 2.2 mg/dL (1.8-2.4); Potassium 3.7 mmol/L (3.5-5.1); Sodium 141 mmol/L (136-145); Total Protein 7.2 g/dL (6.4-8.2)
--- NOTE | 2018-07-19 10:18 | ED.GENADUL_ITS ---
Discharge Plan Disposition Patient Disposition: HOME Condition: Good Discharge Details Chief Complaint: Seizure Clinical Impression: Seizure, Acute dehydration Reason For Visit: [place] Primary Care Provider: Andie Redman ED Provider: Brendon Mckeon Home Meds and New Rx's Prescriptions: No Action topiramate [Topamax] 100 mg tablet 100 mg PO BID Qty: 60 RF: 11 calamine lotion TP PRN RF: 0 alum-mag hydroxide-simeth 200-200-20 mg/5 mL suspension 5 ml PO ONCE PRN (Reason: indigestion) RF: 0 olanzapine 5 mg tablet 2.5 mg PO HS RF: 0 acetaminophen 325 MG tablet 650 mg PO Q4H PRN RF: 0 carbamide peroxide [Ear Wax Treatment] 15 ML drops 4 drp Otic PRN RF: 0 polyethylene glycol 3350 [Miralax] 17 GM powder in packet 17 gm PO DAILY PRNRF: 0 CLORTRIMAZOLE 1 % Topical BID RF: 0 trazodone 50 MG tablet 50 mg PO DAILY RF: 0 dimethicone-zinc oxide [Leann Protect] 57 GM cream 57 gm Topical PRN RF: 0 A&D ointment Topical DAILY RF: 0 hydrocortisone 28.35 GM cream 1 applic Topical DIRECTED RF: 0 bacitracin 3.5 GM ointment 3.5 gm DIRECTED RF: 0 psyllium husk (with sugar) [Metamucil (with sugar)] 575 GM powder 1 gm PO 1 TSB QD RF: 0 trazodone 50 MG tablet 75 mg PO HS RF: 0 diphenhydramine HCl [Benadryl] 25 MG capsule 25 mg PO Q6H PRN RF: 0 carbamide peroxide [Debrox] 15 ML drops 15 ml Otic HS RF: 0 lanolin-mineral oil [Eucerin Original] 500 ML lotion 500 ml Topical BID RF: 0 calcium carbonate-simethicone [Maalox Advanced] 1 EACH tablet,chewable 1 ea PO DIRECTED RF: 0 perampanel 6 mg tablet 6 mg PO HS Qty: 90 RF: 3 clonazepam 0.125 mg tablet,disintegrating 0.125 mg PO as directed Qty: 20 RF: 1 calcium carbonate-vitamin D3 1 EACH tablet 1 ea PO DAILY RF: 0 levothyroxine 100 MCG tablet 100 mcg PO DAILY@0730 RF: 0 Bifidobacterium infantis [Align] 4 MG capsule 4 mg PO DAILY RF: 0 metronidazole [Metrogel Vaginal] 70 GM gel 1 applic VG DAILY RF: 0 docusate sodium [Colace] 100 mg Capsule 100 mg PO DAILY RF: 0 metronidazole 1 % Cream 1 applic TOPICAL DAILY RF: 0 guaifenesin 200 mg/5 mL Liquid 400 mg PO Q4H PRNRF: 0 perampanel [Fycompa] 0.5 mg/mL Suspension PO RF: 0 Discharge Instructions Instructions: Dehydration (ED), Recurrent Seizures in Adults (ED) Additional Instructions: Please drink 8-10 cups of water daily. Please make sure that you are peeing at least 2-3 times per day. Please follow-up as soon as possible with your neurologist. Continue to take your home seizure medications. If you notice any worsening of your symptoms, or any new symptoms such as vomiting, diarrhea, fever, chills, shortness of breath, chest pain, numbness, weakness, or fainting , please return immediately to the emergency department for reevaluation. Please follow up with your primary care provider as soon as possible for reassessment and reevaluation. As always, it was a pleasure participating in your medical care today. Referrals: Ayse Villafana MD [ [facility] STAFF PHYSICIAN] - Discharge Data Discharge Date/Time-TO BE ENTERED AT DEPARTURE: 07/19/18 10:58 Medical Decision Making This is a very pleasant 58-year-old female with a past medical history is of Down syndrome and seizures who regularly takes Fycompa, and Topamax for her seizures. She has had a slight increase in her seizures in the past 1-2 months, as well as some associated infections, including upper respiratory infections. She was recently here in the emergency department and assessed for seizures at that time, she had a CT scan of the head is performed within the last 2 weeks which was normal, she was discharged home with neurology follow-up, she saw neurology less than 24 hours ago, had a EEG performed within the past week. No changes have been made to her medications. Her seizure was very domenico to her normal seizure per family, however it lasted slightly longer than normal however there was a confounding component of her moving during the seizure and being able to respond to commands which would suggest that the seizure actually did not last as long as the suspected 10 minutes or there was a potential focal component which I feel is less likely. Family did note that the patient has not been drinking much over the last 24 hours, and I feel this may be playing into her symptoms. Laboratory workup shows no white count, no signs of bandemia, no signs of significant infection. TSH is normal, creatinine is slightly elevated at 1.34, with a BUN of 23. I feel that this does suggest concern for mild dehydration. Patient was initially mildly tachycardic, blood pressure was slightly low with dry mucous membranes. We did rehydrate the patient with 1 and then a second liter, she is feeling very well after this and has urinated without any difficulty. Urine is not malodorous, however she does suffer from chronic urinary incontinence, and did P in her depends. Dr. Lentz is not yet in her clinic, and with a relatively benign workup, good status after rehydration, normal relatively benign seizure according to family, no signs of focal neurologic deficits, no other significant abnormalities I feel that she can be safely discharged home. I will contact Dr. Lentz when she does get to her clinic and will discuss the case with her at that time. 2: 31 PM Case has been discussed with Dr. Lentz including imaging, physical exam findings, and the patient's clinical history and disposition. All questions were answered. She will be following up with the patient on an outpatient basis HPI General Date/Time Provider Initiated Documentation: 07/19/18 08:05 . HPI Narrative: This is a 58-year-old female with a past medical history of Down syndrome, and seizures for which she takes Topamax, Fycompa, thyroid disease with levothyroxine use, and regular Flagyl for chronic history of infection. She presents today with her caregiver and EMS for seizure. Caregiver states that for today's seizure it occurred this morning. She did not fall or hit her head. There is no trauma. Usually the seizures last around 3-5 minutes, however today family states that it lasted 10 minutes. However they state during the second half of the seizure she was able to look around and respond to some commands. She was given 3 doses of 0.125 Lorazepam intranasally but this did not resolve her seizures. By the time EMS arrived the patient's seizure was ending, and she went into her normal postictal state. She had no bowel or bladder incontinence. No mastication of the tongue or cheeks. By the time the patient was in the ambulance coming to the ER she was back to her normal baseline. Family states that the patient's seizure was otherwise normal for her and not atypical. No other complaints or abnormalities. Family does state over the last month and a half patient has had a few recent infections including pneumonia over 2 weeks ago, and a slight increase in her seizures. She recently was seen by her neurologist less than 24 hours ago, and also had a recent EEG performed by neurology within the past week. No new changes have been made in medications, per the caregiver she has not missed any of her medications. No other complaints at this time. Related Data Home Medications Medication Instructions Recorded Confirmed acetaminophen 650 mg PO Q4H PRN tab-cap NS 10/23/13 07/18/18 carbamide peroxide [Ear Wax 4 drp OTIC PRN script NS 10/23/13 07/19/18 Treatment] Clortrimazole 1 % TOPICAL BID 04/25/15 07/18/18 polyethylene glycol 3350 [Miralax] 17 gm PO DAILY PRN gm 04/25/15 07/19/18 trazodone 50 mg PO DAILY tab-cap 10/01/15 07/19/18 calcium carbonate-vitamin D3 1 ea PO DAILY 05/14/16 07/19/18 levothyroxine 100 mcg PO DAILY@0730 tab 06/19/16 07/19/18 Bifidobacterium infantis [Align] 4 mg PO DAILY 02/25/17 07/18/18 metronidazole [Metrogel Vaginal] 1 applic VG DAILY 02/25/17 07/18/18 dimethicone-zinc oxide [Leann 57 gm TOPICAL PRN 03/02/17 07/19/18 Protect] bacitracin 3.5 gm DIRECTED 12/16/17 07/19/18 hydrocortisone 1 applic TOPICAL DIRECTED gm 12/16/17 07/19/18 psyllium husk (with sugar) 1 gm PO 1 TSB QD 12/16/17 07/19/18 [Metamucil (with sugar)] calcium carbonate-simethicone 1 ea PO DIRECTED tab.chew 03/22/18 07/19/18 [Maalox Advanced] carbamide peroxide [Debrox] 15 ml OTIC HS script 03/22/18 07/19/18 diphenhydramine HCl [Benadryl] 25 mg PO Q6H PRN tab-cap 03/22/18 07/19/18 lanolin-mineral oil [Eucerin 500 ml TOPICAL BID 03/22/18 07/19/18 Original] trazodone 75 mg PO HS tab-cap 03/22/18 07/19/18 docusate sodium [Colace] 100 mg PO DAILY 06/16/18 07/19/18 guaifenesin 400 mg PO Q4H PRN 06/16/18 07/19/18 metronidazole 1 applic TOPICAL DAILY 06/16/18 07/19/18 perampanel [Fycompa] mg PO 06/20/18 07/18/18 clonazepam 0.125 mg disintegrating 0.125 mg PO as directed #20 tab 06/21/1802/28 tablet perampanel 6 mg tablet 6 mg PO HS #90 tab 06/21/18 07/19/18 aluminum-mag hydroxide-simethicone 5 ml PO ONCE PRN 07/05/18 07/18/18 200 mg-200 mg-20 mg/5 mL oral susp calamine lotion applic TP PRN 07/05/18 07/18/18 olanzapine 5 mg tablet 2.5 mg PO HS tab-cap 07/05/18 07/19/18 topiramate 100 mg tablet 100 mg PO BID #60 tab-cap 07/18/18 07/19/18 Previous Rx's Medication Instructions Recorded levothyroxine 100 mcg PO DAILY@0730 tab 06/19/16 clonazepam 0.125 mg disintegrating 0.125 mg PO as directed #20 tab 06/21/18 tablet perampanel 6 mg tablet 6 mg PO HS #90 tab 06/21/18 topiramate 100 mg tablet 100 mg PO BID #60 tab-cap 07/18/18 Allergies Allergy/AdvReac Type Severity Reaction Status Date / Time No Known Allergies Allergy Verified 07/05/18 14:30 General Stated Complaint: Seizure COMPA: 3 Review of Systems Review of Systems All systems reviewed & are unremarkable except as noted in HPI and below Exam Narrative Exam Narrative: 1.Const: Well-nourished, Well-developed, appearing stated age, normal physical findings suggestive of Down syndrome. 2.Eyes: no conjunctival injection, and symmetrical lids. Patient does have evidence of anisocoria, per family that this is chronic and not acute. Right pupil slightly more dilated than left. 3.ENT: Atraumatic external nose and ears. Moist MM. Neck: Symmetric, trachea midline, No thyromegaly. No evidence of tongue or lip or cheek lacerations. No evidence of mastication or bleeding in the mouth. Patient demonstrates good movement of cervical neck. There is no nuchal rigidity, no nuchal tenderness. Patient is able to flex the neck without any difficulty or significant pain. Negative Kernig's and Brudzinski sign. 4.CVS: +S1/S2, No murmurs or gallops. Peripheral pulses 2+ and equal in all extremities. Brisk capillary refill in all extremities. 5.RESP: Unlabored respiratory effort. Clear to auscultation bilaterally. No wheezes rales or rhonchi 6.GI: Soft, Nontender/Nondistended, No hepatosplenomegaly. No guarding or rebound. 7.MSK: Normocephalic/Atraumatic, Extremities w/o deformity or ttp No cyanosis or clubbing, Normal movement of all extremities 8.Skin: Warm, Dry. No rashes or lesions. 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 Sensation grossly intact, no focal neurologic deficits. Normal movements of all extremities, normal strength in all extremities. Neurologic exam is slightly complicated secondary to the patient's chronic mental baseline and Down syndrome. However no focal neurologic deficits are appreciated. 10.Psych:Appropriate mood and affect, and at the patient's baseline per caregiver Course Vital Signs Temperature 36.7 C 07/19/18 07:59 Pulse 71 07/19/18 07:59 Respiratory Rate 18 07/19/18 07:59 Pulse Oximetry 97 07/19/18 07:59 Temperature 36.7 C 07/19/18 07:59 Pulse 71 07/19/18 07:59 Respiratory Rate 18 07/19/18 07:59 Respiratory Effort 07/19/18 08:10 Respiratory Depth Normal 07/19/18 08:10 Respiratory Pattern Normal 07/19/18 08:10 Pulse Oximetry 97 07/19/18 07:59 Oxygen Delivery Method Room Air 07/19/18 07:59 Oxygen Flow Rate 0 07/19/18 07:59 Pain Level 0 11/06/18 07:59 Lab/Test Results Lab/Test Results: Laboratory Tests Range/Units 07/19/18 07/19/18 08:21 08:21 WBC (4.4-10.8) k/cumm 7.07 RBC (4.00-5.20) m/cumm 4.77 Hgb (12.0-15.5) g/dL 16.3 H Hct (36.0-46.0) % 49.2 H MCV (80-95) fL 103.1 H MCH (27.0-33.0) pg 34.2 H MCHC (32.0-36.0) g/dL 33.1 RDW (11.7-14.6) % 14.3 Plt Count (130-400) x1000/uL 176 MPV (8.0-11.0) fL 9.6 Immature Gran % 0.1 Neutrophils % 64.6 Lymphocytes % 29.8 Monocytes % 4.2 Eosinophils % 0.7 Basophils % 0.6 Absolute Neutrophils (1.2-6.7) k/cumm 4.56 Absolute Lymphocytes (1.2-3.4) k/cumm 2.11 Absolute Monocytes (0.11-0.7) k/cumm 0.30 Absolute Eosinophils (0.0-0.7) k/cumm 0.05 Absolute Basophils (0.0-0.2) k/cumm 0.04 Sodium (136-145) mmol/L 141 Potassium (3.5-5.1) mmol/L 3.7 Chloride (98-107) mmol/L 105 Carbon Dioxide (21.0-32.0) mmol/L 28.1 Anion Gap (3-11) mmol/L 7.9 BUN (7-18) mg/dL 23 H Creatinine (0.55-1.02) mg/dL 1.34 H Estimated GFR/1.73 m2 (mL/min/1.73m2) 40.77 Glucose (70-100) mg/dL 114 H Calcium (8.5-10.1) mg/dL 9.0 Magnesium (1.8-2.4) mg/dL 2.2 Total Bilirubin (0.2-1.0) mg/dL 0.5 AST (15-37) U/L 26 ALT (12-78) U/L 39 Alkaline Phosphatase (46-116) U/L 82 Total Protein (6.4-8.2) g/dL 7.2 Albumin (3.4-5.0) g/dL 3.4 TSH (0.358-3.74) uIU/mL 2.50
== END 2018-07-19 10:58 | disposition home or self-care (01) ==
PROVIDERS: Emergency Provider Student in an Organized Health Care Education/Training Program; PCP Nurse Practitioner Family
DX: G40.909 Epilepsy, unspecified, not intractable, without status epilepticus (principal); E86.0 Dehydration; Q90.9 Down syndrome, unspecified
CPT/HCPCS: 36415; 80053; 96360; 96361; 99283; 83735; 84443; 85025

== ENCOUNTER 2018-08-02 07:56 | Emergency (ER) | payer MEDICARE, MEDICAID, SELFPAY ==
[2018-08-02 07:51] VITALS: BP 108/76; PULSE 65; RESP 18; TEMP 36.2; O2SAT 96
--- NOTE | 2018-08-02 07:59 | W.ED.GENAD ---
Discharge Plan Disposition Patient Disposition: HOME Condition: Good Discharge Details Chief Complaint: Seizure Clinical Impression: Seizures Reason For Visit: LILIYAEX Primary Care Provider: Andie Redman ED Provider: Robert Connor [place] Meds and New Rx's Prescriptions: Continue topiramate [Topamax] 100 mg tablet 100 mg PO BID Qty: 60 RF: 11 calamine lotion TP PRN RF: 0 alum-mag hydroxide-simeth 200-200-20 mg/5 mL suspension 5 ml PO ONCE PRN (Reason: indigestion) RF: 0 olanzapine 5 mg tablet 2.5 mg PO HS RF: 0 acetaminophen 325 MG tablet 650 mg PO Q4H PRN RF: 0 carbamide peroxide [Ear Wax Treatment] 15 ML drops 4 drp Otic PRN RF: 0 polyethylene glycol 3350 [Miralax] 17 GM powder in packet 17 gm PO DAILY PRNRF: 0 CLORTRIMAZOLE 1 % Topical BID RF: 0 dimethicone-zinc oxide [Leann Protect] 57 GM cream 57 gm Topical PRN RF: 0 A&D ointment Topical DAILY RF: 0 hydrocortisone 28.35 GM cream 1 applic Topical DIRECTED RF: 0 bacitracin 3.5 GM ointment 3.5 gm DIRECTED RF: 0 psyllium husk (with sugar) [Metamucil (with sugar)] 575 GM powder 1 gm PO 1 TSB QD RF: 0 trazodone 50 MG tablet 75 mg PO HS RF: 0 diphenhydramine HCl [Benadryl] 25 MG capsule 25 mg PO Q6H PRN RF: 0 carbamide peroxide [Debrox] 15 ML drops 15 ml Otic HS RF: 0 lanolin-mineral oil [Eucerin Original] 500 ML lotion 500 ml Topical BID RF: 0 calcium carbonate-simethicone [Maalox Advanced] 1 EACH tablet,chewable 1 ea PO DIRECTED RF: 0 clonazepam 0.125 mg tablet,disintegrating 0.125 mg PO as directed Qty: 20 RF: 1 calcium carbonate-vitamin D3 1 EACH tablet 1 ea PO DAILY RF: 0 levothyroxine 100 MCG tablet 100 mcg PO DAILY@0730 RF: 0 Bifidobacterium infantis [Align] 4 MG capsule 4 mg PO DAILY RF: 0 metronidazole [Metrogel Vaginal] 70 GM gel 1 applic VG DAILY RF: 0 docusate sodium [Colace] 100 mg Capsule 100 mg PO DAILY RF: 0 metronidazole 1 % Cream 1 applic TOPICAL DAILY RF: 0 guaifenesin 200 mg/5 mL Liquid 400 mg PO Q4H PRNRF: 0 topiramate 100 mg Tablet 100 mg Feeding Tube BID RF: 0 perampanel [Fycompa] 8 mg tablet 8 mg PO HS RF: 0 Discharge Instructions Instructions: Recurrent Seizures in Adults (ED) Medical Decision Making 58 yo female with hx of down syndrome and known seizure disorder comes in with possible seizure. Per hx from childcare aide she started to stare to the right and had movement of her eyes, was given lorazepam which broke the seizure and is now at baseline. She is moving all extremities and laughing during exam in no distress. Had recent lab work with no electrolyte abnormaliities. no fevers and appears well systemically so doubt drink box mechanic infection. Do not feel workup indicated at this time for known seizure disorder, advised f/u with her neurologist and return precautions given Differential Diagnosis partial seizure, focal seizure, epilepsy HPI General Mode of arrival: EMS. Date/Time Provider Initiated Documentation: 08/02/18 07:59. Limitations to Documentation: no limitations. Information obtained by: family (sugar refinery supervisor) and EMS. History of Present Illness 58 year old F presents to the emergency department with the chief complaint of possible seizure, Patient started experiencing this hour(s) (1) and it has been now resolved. No relieving factors improve symptom(s), No exacerbating factors reported . Patient notes no other symptoms.. Patient did receive the following treatments prior to arrival, none Related Data Home Medications Medication Instructions Recorded Confirmed acetaminophen 650 mg PO Q4H PRN tab-cap NS 10/23/13 07/18/18 carbamide peroxide [Ear Wax 4 drp OTIC PRN script NS 10/23/13 07/19/18 Treatment] Clortrimazole 1 % TOPICAL BID 04/25/15 07/18/18 polyethylene glycol 3350 [Miralax] 17 gm PO DAILY PRN gm 04/25/15 07/19/18 calcium carbonate-vitamin D3 1 ea PO DAILY 05/14/16 08/02/18 levothyroxine 100 mcg PO DAILY@0730 tab 06/19/16 08/02/18 Bifidobacterium infantis [Align] 4 mg PO DAILY 02/25/17 08/02/18 metronidazole [Metrogel Vaginal] 1 applic VG DAILY 02/25/17 07/18/18 dimethicone-zinc oxide [Leann 57 gm TOPICAL PRN 03/02/17 07/19/18 Protect] bacitracin 3.5 gm DIRECTED 12/16/17 08/02/18 hydrocortisone 1 applic TOPICAL DIRECTED gm 12/16/17 08/02/18 psyllium husk (with sugar) 1 gm PO 1 TSB QD 12/16/17 07/19/18 [Metamucil (with sugar)] calcium carbonate-simethicone 1 ea PO DIRECTED tab.chew 03/22/18 07/19/18 [Maalox Advanced] carbamide peroxide [Debrox] 15 ml OTIC HS script 03/22/18 07/19/18 diphenhydramine HCl [Benadryl] 25 mg PO Q6H PRN tab-cap 03/22/18 07/19/18 lanolin-mineral oil [Eucerin 500 ml TOPICAL BID 03/22/18 07/19/18 Original] trazodone 75 mg PO HS tab-cap 03/22/18 08/02/18 docusate sodium [Colace] 100 mg PO DAILY 06/16/18 07/19/18 guaifenesin 400 mg PO Q4H PRN 06/16/18 07/19/18 metronidazole 1 applic TOPICAL DAILY 06/16/18 08/02/18 clonazepam 0.125 mg disintegrating 0.125 mg PO as directed #20 tab 06/21/18 08/02/18 tablet aluminum-mag hydroxide-simethicone 5 ml PO ONCE PRN 07/05/18 08/02/18 200 mg-200 mg-20 mg/5 mL oral susp calamine lotion applic TP PRN 07/05/18 07/18/18 olanzapine 5 mg tablet 2.5 mg PO HS tab-cap 07/05/18 08/02/18 topiramate 100 mg tablet 100 mg PO BID #60 tab-cap 07/18/18 08/02/18 perampanel [Fycompa] 8 mg PO HS 08/02/18 08/02/18 topiramate 100 mg FEEDING TUBE BID 08/02/18 08/02/18 Previous Rx's Medication Instructions Recorded levothyroxine 100 mcg PO DAILY@0730 tab 06/19/16 clonazepam 0.125 mg disintegrating 0.125 mg PO as directed #20 tab 06/21/18 tablet topiramate 100 mg tablet 100 mg PO BID #60 tab-cap 07/18/18 Allergies Allergy/AdvReac Type Severity Reaction Status Date / Time No Known Allergies Allergy Verified 08/02/18 07:59 General Stated Complaint: Seizure COMPA: 3 Review of Systems Review of Systems Unobtainable due to mental condition and Unobtainable due to (ros obtained from sugar refinery supervisor) Constitutional Denies fever(s) ENT Denies change in voice Cardiovascular Denies dyspnea Respiratory Denies dyspnea Gastrointestinal Denies vomiting Integumentary/Breasts Denies rash Allergic/Immunologic Denies urticaria PFSH Family History Brother No problems noted. 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 (Acute 03/22/18) Down syndrome (Acute 03/22/18) Dementia Down's syndrome Hyperlipemia Hypothyroid Incontinence of bowel Incontinence of urine Seizure disorder Social History adopted: No caregiver/support person: Yes foster care: No household members: caregiver housing: assisted living facility lives independently: No number of children: 0 number of grandchildren: 0 fci: No current occupational status: disabled pets and animals: No Smoking/Tobacco Use Status: Never Exam Const General: no acute distress Orientation: alert HENMT Head: normal to inspection Ears: external ears normal General nose exam: external nose normal Mouth: moist mucous membranes Eyes Pupils: other (right eye 3mm and left eye 1mm, known per chart review and not new) Neck Neck: normal visual inspection Resp Effort & Inspection: normal respiratory effort and able to speak in complete sentences Cardio Rate: regular rate Skin General skin exam: no rashes or lesions noted Neuro General: alert Extrem General: normal to inspection Psych Mental Status: mental status grossly normal Course Vital Signs Temperature 36.2 C L 08/02/18 07:51 Pulse 65 08/02/18 07:51 Respiratory Rate 18 08/02/18 07:51 Blood Pressure 108/76 08/02/18 07:51 Pulse Oximetry 96 08/02/18 07:51 Temperature 36.2 C L 08/02/18 07:51 Pulse 65 08/02/18 07:51 Respiratory Rate 18 08/02/18 07:51 Respiratory Effort 08/02/18 07:58 Respiratory Depth Normal 08/02/18 07:58 Blood Pressure 108/76 08/02/18 07:51 Blood Pressure Position Sitting 08/02/18 07:51 Pulse Oximetry 96 08/02/18 07:51 Oxygen Delivery Method Room Air 08/02/18 07:51 Oxygen Flow Rate 0 08/02/18 07:51 Pain Level 0 08/02/18 07:51
--- NOTE | 2018-08-02 08:09 | ED.GENADUL_ITS ---
Discharge Plan Disposition Patient Disposition: HOME Condition: Good Discharge Details Chief Complaint: Seizure Clinical Impression: Seizures Reason For Visit: LILIYAEX Primary Care Provider: Andie Redman ED Provider: Robert Connor [place] Meds and New Rx's Prescriptions: Continue topiramate [Topamax] 100 mg tablet 100 mg PO BID Qty: 60 RF: 11 calamine lotion TP PRN RF: 0 alum-mag hydroxide-simeth 200-200-20 mg/5 mL suspension 5 ml PO ONCE PRN (Reason: indigestion) RF: 0 olanzapine 5 mg tablet 2.5 mg PO HS RF: 0 acetaminophen 325 MG tablet 650 mg PO Q4H PRN RF: 0 carbamide peroxide [Ear Wax Treatment] 15 ML drops 4 drp Otic PRN RF: 0 polyethylene glycol 3350 [Miralax] 17 GM powder in packet 17 gm PO DAILY PRNRF: 0 CLORTRIMAZOLE 1 % Topical BID RF: 0 dimethicone-zinc oxide [Leann Protect] 57 GM cream 57 gm Topical PRN RF: 0 A&D ointment Topical DAILY RF: 0 hydrocortisone 28.35 GM cream 1 applic Topical DIRECTED RF: 0 bacitracin 3.5 GM ointment 3.5 gm DIRECTED RF: 0 psyllium husk (with sugar) [Metamucil (with sugar)] 575 GM powder 1 gm PO 1 TSB QD RF: 0 trazodone 50 MG tablet 75 mg PO HS RF: 0 diphenhydramine HCl [Benadryl] 25 MG capsule 25 mg PO Q6H PRN RF: 0 carbamide peroxide [Debrox] 15 ML drops 15 ml Otic HS RF: 0 lanolin-mineral oil [Eucerin Original] 500 ML lotion 500 ml Topical BID RF: 0 calcium carbonate-simethicone [Maalox Advanced] 1 EACH tablet,chewable 1 ea PO DIRECTED RF: 0 clonazepam 0.125 mg tablet,disintegrating 0.125 mg PO as directed Qty: 20 RF: 1 calcium carbonate-vitamin D3 1 EACH tablet 1 ea PO DAILY RF: 0 levothyroxine 100 MCG tablet 100 mcg PO DAILY@0730 RF: 0 Bifidobacterium infantis [Align] 4 MG capsule 4 mg PO DAILY RF: 0 metronidazole [Metrogel Vaginal] 70 GM gel 1 applic VG DAILY RF: 0 docusate sodium [Colace] 100 mg Capsule 100 mg PO DAILY RF: 0 metronidazole 1 % Cream 1 applic TOPICAL DAILY RF: 0 guaifenesin 200 mg/5 mL Liquid 400 mg PO Q4H PRNRF: 0 topiramate 100 mg Tablet 100 mg Feeding Tube BID RF: 0 perampanel [Fycompa] 8 mg tablet 8 mg PO HS RF: 0 Discharge Instructions Instructions: Recurrent Seizures in Adults (ED) Medical Decision Making 58 yo female with hx of down syndrome and known seizure disorder comes in with possible seizure. Per hx from wound care nurse she started to stare to the right and had movement of her eyes, was given lorazepam which broke the seizure and is now at baseline. She is moving all extremities and laughing during exam in no distress. Had recent lab work with no electrolyte abnormaliities. no fevers and appears well systemically so doubt instructional resource teacher infection. Do not feel workup indicated at this time for known seizure disorder, advised f/u with her neurologist and return precautions given Differential Diagnosis partial seizure, focal seizure, epilepsy HPI General Mode of arrival: EMS . Date/Time Provider Initiated Documentation: 08/02/18 07:59 . Limitations to Documentation: no limitations . Information obtained by: family (cable engineer) and EMS . History of Present Illness 58 year old F presents to the emergency department with the chief complaint of possible seizure, Patient started experiencing this hour(s) (1) and it has been now resolved. No relieving factors improve symptom(s), No exacerbating factors reported . Patient notes no other symptoms.. Patient did receive the following treatments prior to arrival, none Related Data Home Medications Medication Instructions Recorded Confirmed acetaminophen 650 mg PO Q4H PRN tab-cap NS 10/23/13 07/18/18 carbamide peroxide [Ear Wax 4 drp OTIC PRN script NS 10/23/13 07/19/18 Treatment] Clortrimazole 1 % TOPICAL BID 04/25/15 07/18/18 polyethylene glycol 3350 [Miralax] 17 gm PO DAILY PRN gm 04/25/15 07/19/18 calcium carbonate-vitamin D3 1 ea PO DAILY 05/14/16 08/02/18 levothyroxine 100 mcg PO DAILY@0730 tab 06/19/16 08/02/18 Bifidobacterium infantis [Align] 4 mg PO DAILY 02/25/17 08/02/18 metronidazole [Metrogel Vaginal] 1 applic VG DAILY 02/25/17 07/18/18 dimethicone-zinc oxide [Leann 57 gm TOPICAL PRN 03/02/17 07/19/18 Protect] bacitracin 3.5 gm DIRECTED 12/16/17 08/02/18 hydrocortisone 1 applic TOPICAL DIRECTED gm 12/16/17 08/02/18 psyllium husk (with sugar) 1 gm PO 1 TSB QD 12/16/17 07/19/18 [Metamucil (with sugar)] calcium carbonate-simethicone 1 ea PO DIRECTED tab.chew 03/22/18 07/19/18 [Maalox Advanced] carbamide peroxide [Debrox] 15 ml OTIC HS script 03/22/18 07/19/18 diphenhydramine HCl [Benadryl] 25 mg PO Q6H PRN tab-cap 03/22/18 07/19/18 lanolin-mineral oil [Eucerin 500 ml TOPICAL BID 03/22/18 07/19/18 Original] trazodone 75 mg PO HS tab-cap 03/22/18 08/02/18 docusate sodium [Colace] 100 mg PO DAILY 06/16/18 07/19/18 guaifenesin 400 mg PO Q4H PRN 06/16/18 07/19/18 metronidazole 1 applic TOPICAL DAILY 06/16/18 08/02/18 clonazepam 0.125 mg disintegrating 0.125 mg PO as directed #20 tab 06/21/18 tablet aluminum-mag hydroxide-simethicone 5 ml PO ONCE PRN 07/05/18 08/02/18 200 mg-200 mg-20 mg/5 mL oral susp calamine lotion applic TP PRN 07/05/18 07/18/18 olanzapine 5 mg tablet 2.5 mg PO HS tab-cap 07/05/18 08/02/18 topiramate 100 mg tablet 100 mg PO BID #60 tab-cap 07/18/18 08/02/18 perampanel [Fycompa] 8 mg PO HS 08/02/18 08/02/18 topiramate 100 mg FEEDING TUBE BID 08/02/18 08/02/18 Previous Rx's Medication Instructions Recorded levothyroxine 100 mcg PO DAILY@0730 tab 06/19/16 clonazepam 0.125 mg disintegrating 0.125 mg PO as directed #20 tab 06/21/18 tablet topiramate 100 mg tablet 100 mg PO BID #60 tab-cap 07/18/18 Allergies Allergy/AdvReac Type Severity Reaction Status Date / Time No Known Allergies Allergy Verified 08/02/18 07:59 General Stated Complaint: Seizure COMPA: 3 Review of Systems Review of Systems Unobtainable due to mental condition and Unobtainable due to (ros obtained from cable engineer) Constitutional Denies fever(s) ENT Denies change in voice Cardiovascular Denies dyspnea Respiratory Denies dyspnea Gastrointestinal Denies vomiting Integumentary/Breasts Denies rash Allergic/Immunologic Denies urticaria PFSH Family History Brother No problems noted. 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 (Acute 03/22/18) Down syndrome (Acute 03/22/18) Dementia Down's syndrome Hyperlipemia Hypothyroid Incontinence of bowel Incontinence of urine Seizure disorder Social History adopted: No caregiver/support person: Yes foster care: No household members: caregiver housing: assisted living facility lives independently: No number of children: 0 number of grandchildren: 0 mcc: No current occupational status: disabled pets and animals: No Smoking/Tobacco Use Status: Never Exam Const General: no acute distress Orientation: alert HENMT Head: normal to inspection Ears: external ears normal General nose exam: external nose normal Mouth: moist mucous membranes Eyes Pupils: other (right eye 3mm and left eye 1mm, known per chart review and not new) Neck Neck: normal visual inspection Resp Effort & Inspection: normal respiratory effort and able to speak in complete sentences Cardio Rate: regular rate Skin General skin exam: no rashes or lesions noted Neuro General: alert Extrem General: normal to inspection Psych Mental Status: mental status grossly normal Course Vital Signs Temperature 36.2 C L 08/02/18 07:51 Pulse 65 08/02/18 07:51 Respiratory Rate 18 08/02/18 07:51 Blood Pressure 108/76 08/02/18 07:51 Pulse Oximetry 96 08/02/18 07:51 Temperature 36.2 C L 08/02/18 07:51 Pulse 65 08/02/18 07:51 Respiratory Rate 18 08/02/18 07:51 Respiratory Effort 08/02/18 07:58 Respiratory Depth Normal 08/02/18 07:58 Blood Pressure 108/76 08/02/18 07:51 Blood Pressure Position Sitting 08/02/18 07:51 Pulse Oximetry 96 08/02/18 07:51 Oxygen Delivery Method Room Air 08/02/18 07:51 Oxygen Flow Rate 0 08/02/18 07:51 Pain Level 0 08/02/18 07:51
[2018-08-02 08:20] VITALS: BP 108/76; PULSE 65; RESP 18; TEMP 36.2; O2SAT 96
== END 2018-08-02 08:13 | disposition home or self-care (01) ==
PROVIDERS: Emergency Provider Emergency Medicine; PCP Nurse Practitioner Family
DX: G40.909 Epilepsy, unspecified, not intractable, without status epilepticus (principal); Q90.9 Down syndrome, unspecified; I10 Essential (primary) hypertension
CPT/HCPCS: 99283

== ENCOUNTER → 2018-08-03 09:02 | Outpatient (BNVA) | payer MEDICARE, MEDICAID, SELFPAY | PROVIDERS: PCP Nurse Practitioner Family; Referring Provider Nurse Practitioner Family; Visit Provider Student in an Organized Health Care Education/Training Program | DX: R00.1 Bradycardia, unspecified (principal); Q90.9 Down syndrome, unspecified | CPT/HCPCS: 99203; 99215 ==

== ENCOUNTER 2018-08-10 12:16 | Emergency (ER) | payer MEDICARE, MEDICAID, SELFPAY ==
--- NOTE | 2018-08-10 12:16 | W.ED.GENAD ---
Discharge Plan Disposition Patient Disposition: HOME Condition: Fair Discharge Details Chief Complaint: Seizure Clinical Impression: Seizures Reason For Visit: NORMA Primary Care Provider: Andie Redman ED Provider: Cecy Grace Home Meds and New Rx's Prescriptions: Continue topiramate [Topamax] 100 mg tablet 100 mg PO BID Qty: 60 RF: 11 calamine lotion TP PRN RF: 0 alum-mag hydroxide-simeth 200-200-20 mg/5 mL suspension 5 ml PO ONCE PRN (Reason: indigestion) RF: 0 olanzapine 5 mg tablet 2.5 mg PO HS RF: 0 acetaminophen 325 MG tablet 650 mg PO Q4H PRN RF: 0 carbamide peroxide [Ear Wax Treatment] 15 ML drops 4 drp Otic PRN RF: 0 polyethylene glycol 3350 [Miralax] 17 GM powder in packet 17 gm PO DAILY PRNRF: 0 CLORTRIMAZOLE 1 % Topical BID RF: 0 dimethicone-zinc oxide [Leann Protect] 57 GM cream 57 gm Topical PRN RF: 0 A&D ointment Topical DAILY RF: 0 hydrocortisone 28.35 GM cream 1 applic Topical DIRECTED RF: 0 bacitracin 3.5 GM ointment 3.5 gm DIRECTED RF: 0 psyllium husk (with sugar) [Metamucil (with sugar)] 575 GM powder 1 gm PO 1 TSB QD RF: 0 trazodone 50 MG tablet 75 mg PO HS RF: 0 diphenhydramine HCl [Benadryl] 25 MG capsule 25 mg PO Q6H PRN RF: 0 carbamide peroxide [Debrox] 15 ML drops 15 ml Otic HS RF: 0 lanolin-mineral oil [Eucerin Original] 500 ML lotion 500 ml Topical BID RF: 0 calcium carbonate-simethicone [Maalox Advanced] 1 EACH tablet,chewable 1 ea PO DIRECTED RF: 0 clonazepam 0.125 mg tablet,disintegrating 0.125 mg PO as directed Qty: 20 RF: 1 lacosamide [Vimpat] 50 mg tablet 50 mg PO BID Qty: 60 RF: 3 calcium carbonate-vitamin D3 1 EACH tablet 1 ea PO DAILY RF: 0 levothyroxine 100 MCG tablet 100 mcg PO DAILY@0730 RF: 0 Bifidobacterium infantis [Align] 4 MG capsule 4 mg PO DAILY RF: 0 metronidazole [Metrogel Vaginal] 70 GM gel 1 applic VG DAILY RF: 0 docusate sodium [Colace] 100 mg Capsule 100 mg PO DAILY RF: 0 metronidazole 1 % Cream 1 applic TOPICAL DAILY RF: 0 guaifenesin 200 mg/5 mL Liquid 400 mg PO Q4H PRNRF: 0 topiramate 100 mg Tablet 100 mg Feeding Tube BID RF: 0 perampanel [Fycompa] 8 mg tablet 8 mg PO HS RF: 0 Discharge Instructions Instructions: Recurrent Seizures in Adults (ED) Additional Instructions: Encourage hydration. Please continue medications as previously prescribed. Vimpat has been called into local pharmacy by Dr. Lentz as discussed for seizure disorder. Jolynn will need follow-up with Dr. Dustin Coats as well as her primary care provider. I would like for her to see these providers in the next 2 weeks for reevaluation and discuss medications as side effects is a concern. If she develops new or worsening symptoms please seek care urgently once again. Referrals: Andie Redman [Primary Care Provider] - Discharge Data Discharge Date/Time-TO BE ENTERED AT DEPARTURE: 08/10/18 14:31 Medical Decision Making Patient 58-year-old female, accompanied by caregiver and brought in via EMS, with chief complaint of seizure. Patient has history of seizures, early onset Alzheimer's, Down syndrome, hyperlipidemia, hypothyroidism. For the past 3 months, patient's seizures have been increasing and changing per the caregiver. Patient was seen here 4 times over the past 2 months with complaints of seizures. Is there protocol to transfer the patient with a seizure over 5 minutes. Reported to the seizure lasted approximately 6 minutes. They did use the sublingual clonazepam which typically works well for her and when EMS arrived patient was in a postictal state. Caregiver reports that patient is back to baseline although does continue to appear fatigued. She reports this is typical for her this far out from procedure. Did not strike her head. No injury. I do not see any evidence of trauma on exam. Patient is nonverbal at baseline making history difficult however caregiver is quite knowledgeable on the patient's history. Caregiver reports she been getting her medications as prescribed. Prior to myself he can evaluate the patient, was contacted by Dr. Lentz. I did instruct and was contacted by medic who was concerned for the frequency of transfer as a cause for seizures. Dr. Lentz advised that there is been hesitancy to change medication on the part of the guardian as the patient has not responded well to all medications historically. However, she did advise beginning the patient on Vimpat reports she will call this into the local pharmacy for the patient. Will obtain baseline labs. Patient is not localizing any discomfort. Vital signs within normal limits. Blood pressure noted be slightly low at 94/62 but this is within normal for the patient. Spoke with Anna, patient's guardian, regarding Jolynn's seizure and recommendations of Dr. Cabrera. She reports they have been hesitant to add more medications as she has noted a decline in her physical ability to ambulate. They are concerned that this is linked to medication. However, I also discussed with her that this tube may be progression of disease and being able to pinpoint if this is secondary to the medication versus the progression is leading to the increase in medication is difficult. She seems more concerned with psychiatric medications the patient is on and has been requesting that some of these be lowered. Advised at this point this is not some and that would be completed to the emergency department. Rather, this would need to be discussion with her psychiatrist as well as primary care. Guardian advised that she and the patient's living facility where he will arrange for follow-up with primary care, neurology as well as psychiatry to discuss medications. She does agreed to the trial of Vimpat that was advised by Dr. Lentz. Laboratory evaluation without signficant abnormality. No evidence of infection. Discussed findings with direct care professional. Discussed patient's need for follow-up to discuss medication changes further. They will arrange for patient to begin medication as advised by Dr. Lentz. Will also arrange for the f/u with PCP and psychiatrist to discuss medication changes as they are hoping to wean the patient off of other medications. We discussed new/wrosening symptoms and when to seek care urgently once again. All of their quetions and concerns were addressed, they are in agreement with this plan. HPI General Mode of arrival: EMS. Date/Time Provider Initiated Documentation: 08/10/18 12:25. Limitations to Documentation: altered mental status. Information obtained by: EMS (EMS and direct care professional are present and giving us historical information). HPI Narrative: Patient is a 58 year old female presenting today after 6 minutes seizure. This was treated with sublingual clonazepam given by care givers. EMS reports that she was postictal at the time of their presentation. Patient has had increasing seziures for the past [address] Cabrera, was seen last week. Secondary to patient's medical history including early Alzheimer's and Down Syndrome, history is difficult to obtain although direct care professional is very well informed and helpful. Related Data Home Medications Medication Instructions Recorded Confirmed acetaminophen 650 mg PO Q4H PRN tab-cap NS 10/23/13 08/03/18 carbamide peroxide [Ear Wax 4 drp OTIC PRN script NS 10/23/13 08/03/18 Treatment] Clortrimazole 1 % TOPICAL BID 04/25/15 08/03/18 polyethylene glycol 3350 [Miralax] 17 gm PO DAILY PRN gm 04/25/15 08/03/18 calcium carbonate-vitamin D3 1 ea PO DAILY 05/14/16 08/03/18 levothyroxine 100 mcg PO DAILY@0730 tab 06/19/16 08/03/18 Bifidobacterium infantis [Align] 4 mg PO DAILY 02/25/17 08/03/18 metronidazole [Metrogel Vaginal] 1 applic VG DAILY 02/25/17 08/03/18 dimethicone-zinc oxide [Leann 57 gm TOPICAL PRN 03/02/17 08/03/18 Protect] bacitracin 3.5 gm DIRECTED 12/16/17 08/03/18 hydrocortisone 1 applic TOPICAL DIRECTED gm 12/16/17 08/03/18 psyllium husk (with sugar) 1 gm PO 1 TSB QD 12/16/17 08/03/18 [Metamucil (with sugar)] calcium carbonate-simethicone 1 ea PO DIRECTED tab.chew 03/22/18 08/03/18 [Maalox Advanced] carbamide peroxide [Debrox] 15 ml OTIC HS script 03/22/18 08/03/18 diphenhydramine HCl [Benadryl] 25 mg PO Q6H PRN tab-cap 03/22/18 08/03/18 lanolin-mineral oil [Eucerin 500 ml TOPICAL BID 03/22/18 08/03/18 Original] trazodone 75 mg PO HS tab-cap 03/22/18 08/03/18 docusate sodium [Colace] 100 mg PO DAILY 06/16/18 08/03/18 guaifenesin 400 mg PO Q4H PRN 06/16/18 08/03/18 metronidazole 1 applic TOPICAL DAILY 06/16/18 08/03/18 clonazepam 0.125 mg disintegrating 0.125 mg PO as directed #20 tab 06/21/18 08/03/18 tablet aluminum-mag hydroxide-simethicone 5 ml PO ONCE PRN 07/05/18 08/03/18 200 mg-200 mg-20 mg/5 mL oral susp calamine lotion applic TP PRN 07/05/18 08/03/18 olanzapine 5 mg tablet 2.5 mg PO HS tab-cap 07/05/18 08/03/18 topiramate 100 mg tablet 100 mg PO BID #60 tab-cap 07/18/18 08/03/18 perampanel [Fycompa] 8 mg PO HS 08/02/18 08/03/18 topiramate 100 mg FEEDING TUBE BID 08/02/18 08/03/18 lacosamide 50 mg tablet 50 mg PO BID #60 tab 08/10/18 Previous Rx's Medication Instructions Recorded levothyroxine 100 mcg PO DAILY@0730 tab 06/19/16 clonazepam 0.125 mg disintegrating 0.125 mg PO as directed #20 tab 06/21/18 tablet topiramate 100 mg tablet 100 mg PO BID #60 tab-cap 07/18/18 lacosamide 50 mg tablet 50 mg PO BID #60 tab 08/10/18 Allergies Allergy/AdvReac Type Severity Reaction Status Date / Time No Known Allergies Allergy Verified 08/10/18 12:23 General COMPA: 3 Review of Systems Review of Systems Unobtainable due to mental condition [facility] Social History adopted: No caregiver/support person: Yes foster care: No household members: caregiver housing: assisted living facility lives independently: No number of children: 0 number of grandchildren: 0 [place] [facility]: No current occupational status: disabled pets and animals: No Smoking/Tobacco Use Status: Never Exam Const General: cooperative, comfortable, no acute distress, well developed and well groomed Nutritional Appearance: well nourished and overweight Orientation: alert, awake and other (patient is nonverbal at baseline) [facility] Head: normal to inspection, no palpable skull fracture and atraumatic Ears: hearing grossly normal bilaterally and external ears normal General nose exam: external nose normal Mouth: oral mucosae normal, lip normal and tongue normal (no evidence of trauma) Eyes General: appearance abnormal, both eyes (right pupil is larger than left, direct care professional reports this is typical and unchanged from baseline) Alignment and Position: alignment normal EOM: EOM intact bilaterally Neck Neck: normal visual inspection and no lymphadenopathy Resp Effort & Inspection: normal respiratory effort, able to speak in complete sentences and no respiratory distress Auscultation: clear to auscultation bilaterally, no rales, no rhonchi and no wheezes Cardio Rate: regular rate Rhythm: regular rhythm Heart Sounds: S1 normal and S2 normal GI Inspection: normal to inspection, no abdominal wall ecchymosis, no edema and non-distended Palpation: soft, not firm, no guarding and nontender Auscultation: normal bowel sounds Skin General skin exam: no rashes or lesions noted Trauma: no lacerations or abrasions Neuro General: alert, awake and gait abnormal (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
[2018-08-10 12:18] VITALS: BP 94/62; PULSE 74; RESP 16; TEMP 36.6; O2SAT 97
--- NOTE | 2018-08-10 12:38 | ED.GENADUL_ITS ---
Discharge Plan Disposition Patient Disposition: HOME Condition: Fair Discharge Details Chief Complaint: Seizure Clinical Impression: Seizures Reason For Visit: NORMA Primary Care Provider: Andie Redman ED Provider: Cecy Grace Home Meds and New Rx's Prescriptions: Continue topiramate [Topamax] 100 mg tablet 100 mg PO BID Qty: 60 RF: 11 calamine lotion TP PRN RF: 0 alum-mag hydroxide-simeth 200-200-20 mg/5 mL suspension 5 ml PO ONCE PRN (Reason: indigestion) RF: 0 olanzapine 5 mg tablet 2.5 mg PO HS RF: 0 acetaminophen 325 MG tablet 650 mg PO Q4H PRN RF: 0 carbamide peroxide [Ear Wax Treatment] 15 ML drops 4 drp Otic PRN RF: 0 polyethylene glycol 3350 [Miralax] 17 GM powder in packet 17 gm PO DAILY PRNRF: 0 CLORTRIMAZOLE 1 % Topical BID RF: 0 dimethicone-zinc oxide [Leann Protect] 57 GM cream 57 gm Topical PRN RF: 0 A&D ointment Topical DAILY RF: 0 hydrocortisone 28.35 GM cream 1 applic Topical DIRECTED RF: 0 bacitracin 3.5 GM ointment 3.5 gm DIRECTED RF: 0 psyllium husk (with sugar) [Metamucil (with sugar)] 575 GM powder 1 gm PO 1 TSB QD RF: 0 trazodone 50 MG tablet 75 mg PO HS RF: 0 diphenhydramine HCl [Benadryl] 25 MG capsule 25 mg PO Q6H PRN RF: 0 carbamide peroxide [Debrox] 15 ML drops 15 ml Otic HS RF: 0 lanolin-mineral oil [Eucerin Original] 500 ML lotion 500 ml Topical BID RF: 0 calcium carbonate-simethicone [Maalox Advanced] 1 EACH tablet,chewable 1 ea PO DIRECTED RF: 0 clonazepam 0.125 mg tablet,disintegrating 0.125 mg PO as directed Qty: 20 RF: 1 lacosamide [Vimpat] 50 mg tablet 50 mg PO BID Qty: 60 RF: 3 calcium carbonate-vitamin D3 1 EACH tablet 1 ea PO DAILY RF: 0 levothyroxine 100 MCG tablet 100 mcg PO DAILY@0730 RF: 0 Bifidobacterium infantis [Align] 4 MG capsule 4 mg PO DAILY RF: 0 metronidazole [Metrogel Vaginal] 70 GM gel 1 applic VG DAILY RF: 0 docusate sodium [Colace] 100 mg Capsule 100 mg PO DAILY RF: 0 metronidazole 1 % Cream 1 applic TOPICAL DAILY RF: 0 guaifenesin 200 mg/5 mL Liquid 400 mg PO Q4H PRNRF: 0 topiramate 100 mg Tablet 100 mg Feeding Tube BID RF: 0 perampanel [Fycompa] 8 mg tablet 8 mg PO HS RF: 0 Discharge Instructions Instructions: Recurrent Seizures in Adults (ED) Additional Instructions: Encourage hydration. Please continue medications as previously prescribed. Vimpat has been called into local pharmacy by Dr. Lentz as discussed for seizure disorder. Jolynn will need follow-up with Dr. Dustin Coats as well as her primary care provider. I would like for her to see these providers in the next 2 weeks for reevaluation and discuss medications as side effects is a concern. If she develops new or worsening symptoms please seek care urgently once again. Referrals: Andie Redman [Primary Care Provider] - Discharge Data Discharge Date/Time-TO BE ENTERED AT DEPARTURE: 08/10/18 14:31 Medical Decision Making Patient 58-year-old female, accompanied by caregiver and brought in via EMS, with chief complaint of seizure. Patient has history of seizures, early onset Alzheimer's, Down syndrome, hyperlipidemia, hypothyroidism. For the past 3 months, patient's seizures have been increasing and changing per the caregiver. Patient was seen here 4 times over the past 2 months with complaints of seizures. Is there protocol to transfer the patient with a seizure over 5 minutes. Reported to the seizure lasted approximately 6 minutes. They did use the sublingual clonazepam which typically works well for her and when EMS arrived patient was in a postictal state. Caregiver reports that patient is back to baseline although does continue to appear fatigued. She reports this is typical for her this far out from procedure. Did not strike her head. No injury. I do not see any evidence of trauma on exam. Patient is nonverbal at baseline making history difficult however caregiver is quite knowledgeable on the patient's history. Caregiver reports she been getting her medications as prescribed. Prior to myself he can evaluate the patient, was contacted by Dr. Lentz. I did instruct and was contacted by medic who was concerned for the frequency of transfer as a cause for seizures. Dr. Lentz advised that there is been hesitancy to change medication on the part of the guardian as the patient has not responded well to all medications historically. However, she did advise beginning the patient on Vimpat reports she will call this into the local pharmacy for the patient. Will obtain baseline labs. Patient is not localizing any discomfort. Vital signs within normal limits. Blood pressure noted be slightly low at 94/62 but this is within normal for the patient. Spoke with Anna, patient's guardian, regarding Jolynn's seizure and recommendations of Dr. Cabrera. She reports they have been hesitant to add more medications as she has noted a decline in her physical ability to ambulate. They are concerned that this is linked to medication. However, I also discussed with her that this tube may be progression of disease and being able to pinpoint if this is secondary to the medication versus the progression is leading to the increase in medication is difficult. She seems more concerned with psychiatric medications the patient is on and has been requesting that some of these be lowered. Advised at this point this is not some and that would be completed to the emergency department. Rather, this would need to be discussion with her psychiatrist as well as primary care. Guardian advised that she and the patient's living facility where he will arrange for follow-up with primary care, neurology as well as psychiatry to discuss medications. She does agreed to the trial of Vimpat that was advised by Dr. Lentz. Laboratory evaluation without signficant abnormality. No evidence of infection. Discussed findings with rn long term care. Discussed patient's need for follow-up to discuss medication changes further. They will arrange for patient to begin medication as advised by Dr. Lentz. Will also arrange for the f/u with PCP and psychiatrist to discuss medication changes as they are hoping to wean the patient off of other medications. We discussed new/wrosening symptoms and when to seek care urgently once again. All of their quetions and concerns were addressed, they are in agreement with this plan. HPI General Mode of arrival: EMS . Date/Time Provider Initiated Documentation: 08/10/18 12:25 . Limitations to Documentation: altered mental status . Information obtained by: EMS (EMS and rn long term care are present and giving us historical information) . HPI Narrative: Patient is a 58 year old female presenting today after 6 minutes seizure. This was treated with sublingual clonazepam given by care givers. EMS reports that she was postictal at the time of their presentation. Patient has had increasing seziures for the past [address] Cabrera, was seen last week. Secondary to patient's medical history including early Alzheimer's and Down Syndrome, history is difficult to obtain although rn long term care is very well informed and helpful. Related Data Home Medications Medication Instructions Recorded Confirmed acetaminophen 650 mg PO Q4H PRN tab-cap NS 10/23/13 08/03/18 carbamide peroxide [Ear Wax 4 drp OTIC PRN script NS 10/23/13 08/03/18 Treatment] Clortrimazole 1 % TOPICAL BID 04/25/15 08/03/18 polyethylene glycol 3350 [Miralax] 17 gm PO DAILY PRN gm 04/25/15 08/03/18 calcium carbonate-vitamin D3 1 ea PO DAILY 05/14/16 08/03/18 levothyroxine 100 mcg PO DAILY@0730 tab 06/19/16 08/03/18 Bifidobacterium infantis [Align] 4 mg PO DAILY 02/25/17 08/03/18 metronidazole [Metrogel Vaginal] 1 applic VG DAILY 02/25/17 08/03/18 dimethicone-zinc oxide [Leann 57 gm TOPICAL PRN 03/02/17 08/03/18 Protect] bacitracin 3.5 gm DIRECTED 12/16/17 08/03/18 hydrocortisone 1 applic TOPICAL DIRECTED gm 12/16/17 08/03/18 psyllium husk (with sugar) 1 gm PO 1 TSB QD 12/16/17 08/03/18 [Metamucil (with sugar)] calcium carbonate-simethicone 1 ea PO DIRECTED tab.chew 03/22/18 08/03/18 [Maalox Advanced] carbamide peroxide [Debrox] 15 ml OTIC HS script 03/22/18 08/03/18 diphenhydramine HCl [Benadryl] 25 mg PO Q6H PRN tab-cap 03/22/18 08/03/18 lanolin-mineral oil [Eucerin 500 ml TOPICAL BID 03/22/18 08/03/18 Original] trazodone 75 mg PO HS tab-cap 03/22/18 08/03/18 docusate sodium [Colace] 100 mg PO DAILY 06/16/18 08/03/18 guaifenesin 400 mg PO Q4H PRN 06/16/18 08/03/18 metronidazole 1 applic TOPICAL DAILY 06/16/18 08/03/18 clonazepam 0.125 mg disintegrating 0.125 mg PO as directed #20 tab 06/21/18 tablet aluminum-mag hydroxide-simethicone 5 ml PO ONCE PRN 07/05/18 08/03/18 200 mg-200 mg-20 mg/5 mL oral susp calamine lotion applic TP PRN 07/05/18 08/03/18 olanzapine 5 mg tablet 2.5 mg PO HS tab-cap 07/05/18 08/03/18 topiramate 100 mg tablet 100 mg PO BID #60 tab-cap 07/18/18 08/03/18 perampanel [Fycompa] 8 mg PO HS 08/02/18 08/03/18 topiramate 100 mg FEEDING TUBE BID 08/02/18 08/03/18 lacosamide 50 mg tablet 50 mg PO BID #60 tab 08/10/18 Previous Rx's Medication Instructions Recorded levothyroxine 100 mcg PO DAILY@0730 tab 06/19/16 clonazepam 0.125 mg disintegrating 0.125 mg PO as directed #20 tab 06/21/18 tablet topiramate 100 mg tablet 100 mg PO BID #60 tab-cap 07/18/18 lacosamide 50 mg tablet 50 mg PO BID #60 tab 08/10/18 Allergies Allergy/AdvReac Type Severity Reaction Status Date / Time No Known Allergies Allergy Verified 08/10/18 12:23 General COMPA: 3 Review of Systems Review of Systems Unobtainable due to mental condition [facility] Social History adopted: No caregiver/support person: Yes foster care: No household members: caregiver housing: assisted living facility lives independently: No number of children: 0 number of grandchildren: 0 retirement: No current occupational status: disabled pets and animals: No Smoking/Tobacco Use Status: Never Exam Const General: cooperative, comfortable, no acute distress, well developed and well groomed Nutritional Appearance: well nourished and overweight Orientation: alert, awake and other (patient is nonverbal at baseline) [facility] Head: normal to inspection, no palpable skull fracture and atraumatic Ears: hearing grossly normal bilaterally and external ears normal General nose exam: external nose normal Mouth: oral mucosae normal, lip normal and tongue normal (no evidence of trauma) Eyes General: appearance abnormal, both eyes (right pupil is larger than left, rn long term care reports this is typical and unchanged from baseline) Alignment and Position: alignment normal EOM: EOM intact bilaterally Neck Neck: normal visual inspection and no lymphadenopathy Resp Effort & Inspection: normal respiratory effort, able to speak in complete sentences and no respiratory distress Auscultation: clear to auscultation bilaterally, no rales, no rhonchi and no wheezes Cardio Rate: regular rate Rhythm: regular rhythm Heart Sounds: S1 normal and S2 normal GI Inspection: normal to inspection, no abdominal wall ecchymosis, no edema and non -distended Palpation: soft, not firm, no guarding and nontender Auscultation: normal bowel sounds Skin General skin exam: no rashes or lesions noted Trauma: no lacerations or abrasions Neuro General: alert, awake and gait abnormal (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
[2018-08-10 12:52] LABS: Abs Immature Grans 0.01 k/cumm (0.0-0.09); Absolute Basophil Count 0.03 k/cumm (0.0-0.2); Absolute Eosinophil Count 0.03 k/cumm (0.0-0.7); Absolute Lymphocyte Count 2.27 k/cumm (1.2-3.4); Absolute Monocyte Count 0.41 k/cumm (0.11-0.7); Absolute Neutrophil Count 3.09 k/cumm (1.2-6.7); Basophils % 0.5; Eosinophils % 0.5; HCT 47.8 % (36.0-46.0); HGB 15.9 g/dL (12.0-15.5); Immature Grans % 0.2; Lymphocytes % 38.9; Mean Corp. HGB Concentration 33.3 g/dL (32.0-36.0); Mean Corpuscular Hemoglobin 34.3 pg (27.0-33.0); Mean Platelet Volume 9.6 fL (8.0-11.0); Neutrophils % 52.9; Platelet Count 169 x1000/uL (130-400); RBC 4.64 m/cumm (4.00-5.20); RBC Distribution Width 14.1 % (11.7-14.6); White Blood Cell Count 5.84 k/cumm (4.4-10.8)
[2018-08-10 13:15] LABS: ALT 36 U/L (12-78); AST 22 U/L (15-37); Albumin 3.2 g/dL (3.4-5.0); Alkaline Phosphatase 76 U/L (46-116); Anion Gap 8.3 mmol/L (3-11); BUN 16 mg/dL (7-18); Bilirubin, Total 0.3 mg/dL (0.2-1.0); CO2 29.7 mmol/L (21.0-32.0); CREATININE 1.06 mg/dL (0.55-1.02); Calcium 8.6 mg/dL (8.5-10.1); Chloride 104 mmol/L (98-107); Estimated GFR 53.43 (mL/min/1.73m2); Glucose 85 mg/dL (70-100); Magnesium 2.3 mg/dL (1.8-2.4); Potassium 3.6 mmol/L (3.5-5.1); Sodium 142 mmol/L (136-145); Total Protein 6.8 g/dL (6.4-8.2)
[2018-08-10 13:39] LABS: Bilirubin Negative (Negative); Blood Negative (Negative); Clarity Clear; Glucose Negative (Negative); Ketones Negative (Negative); Leukocyte Esterase Negative (Negative); Nitrite Negative (Negative); Urobilinogen 0.2 EU/dL (Up TO 0.2)
[2018-08-10 14:31] VITALS: BP 114/75; PULSE 65; RESP 12; TEMP 37; O2SAT 97
== END 2018-08-10 14:31 | disposition home or self-care (01) ==
LOC: ER 14:42
PROVIDERS: Emergency Provider Physician Assistant; PCP Nurse Practitioner Family
DX: G40.909 Epilepsy, unspecified, not intractable, without status epilepticus (principal)
CPT/HCPCS: 36415; 80053; 99283; 81003; 83735; 84443; 85025

== ENCOUNTER 2018-08-18 14:40 | Emergency (ER) | payer MEDICARE, MEDICAID, SELFPAY ==
[2018-08-18 14:41] VITALS: BP 121/62; PULSE 71; RESP 16; TEMP 37.2; O2SAT 96
--- NOTE | 2018-08-18 14:56 | W.ED.GENAD ---
Discharge Plan Disposition Patient Disposition: HOME Condition: Stable Discharge Details Chief Complaint: Seizure Clinical Impression: Seizures Reason For Visit: LILIYAEX Primary Care Provider: Andie Redman ED Provider: Robert Connor [place] Meds and New Rx's Prescriptions: Continue topiramate [Topamax] 100 mg tablet 100 mg PO BID Qty: 60 RF: 11 calamine lotion TP PRN RF: 0 alum-mag hydroxide-simeth 200-200-20 mg/5 mL suspension 5 ml PO ONCE PRN (Reason: indigestion) RF: 0 olanzapine 5 mg tablet 2.5 mg PO HS RF: 0 acetaminophen 325 MG tablet 650 mg PO Q4H PRN RF: 0 carbamide peroxide [Ear Wax Treatment] 15 ML drops 4 drp Otic PRN RF: 0 polyethylene glycol 3350 [Miralax] 17 GM powder in packet 17 gm PO DAILY PRNRF: 0 CLORTRIMAZOLE 1 % Topical BID RF: 0 dimethicone-zinc oxide [Leann Protect] 57 GM cream 57 gm Topical PRN RF: 0 A&D ointment Topical DAILY RF: 0 hydrocortisone 28.35 GM cream 1 applic Topical DIRECTED RF: 0 bacitracin 3.5 GM ointment 3.5 gm DIRECTED RF: 0 psyllium husk (with sugar) [Metamucil (with sugar)] 575 GM powder 1 gm PO 1 TSB QD RF: 0 trazodone 50 MG tablet 75 mg PO HS RF: 0 diphenhydramine HCl [Benadryl] 25 MG capsule 25 mg PO Q6H PRN RF: 0 carbamide peroxide [Debrox] 15 ML drops 15 ml Otic HS RF: 0 lanolin-mineral oil [Eucerin Original] 500 ML lotion 500 ml Topical BID RF: 0 calcium carbonate-simethicone [Maalox Advanced] 1 EACH tablet,chewable 1 ea PO DIRECTED RF: 0 clonazepam 0.125 mg tablet,disintegrating 0.125 mg PO as directed Qty: 20 RF: 1 lacosamide [Vimpat] 50 mg tablet 50 mg PO BID Qty: 60 RF: 3 calcium carbonate-vitamin D3 1 EACH tablet 1 ea PO DAILY RF: 0 levothyroxine 100 MCG tablet 100 mcg PO DAILY@0730 RF: 0 Bifidobacterium infantis [Align] 4 MG capsule 4 mg PO DAILY RF: 0 metronidazole [Metrogel Vaginal] 70 GM gel 1 applic VG DAILY RF: 0 docusate sodium [Colace] 100 mg Capsule 100 mg PO DAILY RF: 0 metronidazole 1 % Cream 1 applic TOPICAL DAILY RF: 0 guaifenesin 200 mg/5 mL Liquid 400 mg PO Q4H PRNRF: 0 topiramate 100 mg Tablet 100 mg Feeding Tube BID RF: 0 perampanel [Fycompa] 8 mg tablet 8 mg PO HS RF: 0 Discharge Instructions Additional Instructions: If she has a seizure that lasts less than 15 minutes, or if she has a seizure lasting longer than this and is given klonopin but is at baseline by the time EMS gets to the house she doesn't need to come to the emegency department Follow up with her primary care provider in 1-2 weeks If she has fevers, persistent vomit or appears ill to you return to the emergency department for evaluation Medical Decision Making 58 yo female with hx of Downs, frequent partial seizures, who comes in after a seizure. She has episodes where she stares and blninks and has brisk movements of her extremities. This happened today lasting about 8 or so minutes per landcare officer, was given prn klonopin and resolved the seizure but per their protocol if seizure lasting more than 5 minutes she needs to come here. Is sitting in bed playing with a purse without complaints in no distress. Has had negative workups recently with normal electrolytes so do not feel additional workup needed here. ADvised they can wait longer before coming here since by the time EMS gets to her she is normally at baseline. Will have her f/u with pcp and return precautions given Differential Diagnosis seizure disorder, partial seizure HPI General Mode of arrival: EMS. Date/Time Provider Initiated Documentation: 08/18/18 14:47. Information obtained by: family (landcare officer). History of Present Illness 58 year old F presents to the emergency department with the chief complaint of seizure, Patient reports no radiation. Patient started experiencing this minute(s) (30) and it has been now resolved. No relieving factors improve symptom(s), No exacerbating factors reported . Related Data Home Medications Medication Instructions Recorded Confirmed acetaminophen 650 mg PO Q4H PRN tab-cap NS 10/23/13 08/18/18 carbamide peroxide [Ear Wax 4 drp OTIC PRN script NS 10/23/13 08/18/18 Treatment] Clortrimazole 1 % TOPICAL BID 04/25/15 08/18/18 polyethylene glycol 3350 [Miralax] 17 gm PO DAILY PRN gm 04/25/15 08/18/18 calcium carbonate-vitamin D3 1 ea PO DAILY 05/14/16 08/03/18 levothyroxine 100 mcg PO DAILY@0730 tab 06/19/16 08/18/18 Bifidobacterium infantis [Align] 4 mg PO DAILY 02/25/17 08/18/18 metronidazole [Metrogel Vaginal] 1 applic VG DAILY 02/25/17 08/03/18 dimethicone-zinc oxide [Leann 57 gm TOPICAL PRN 03/02/17 08/18/18 Protect] bacitracin 3.5 gm DIRECTED 12/16/17 08/18/18 hydrocortisone 1 applic TOPICAL DIRECTED gm 12/16/17 08/18/18 psyllium husk (with sugar) 1 gm PO 1 TSB QD 12/16/17 08/18/18 [Metamucil (with sugar)] calcium carbonate-simethicone 1 ea PO DIRECTED tab.chew 03/22/18 08/18/18 [Maalox Advanced] carbamide peroxide [Debrox] 15 ml OTIC HS script 03/22/18 08/18/18 diphenhydramine HCl [Benadryl] 25 mg PO Q6H PRN tab-cap 03/22/18 08/18/18 lanolin-mineral oil [Eucerin 500 ml TOPICAL BID 03/22/18 08/18/18 Original] trazodone 75 mg PO HS tab-cap 03/22/18 08/18/18 docusate sodium [Colace] 100 mg PO DAILY 06/16/18 08/18/18 guaifenesin 400 mg PO Q4H PRN 06/16/18 08/18/18 metronidazole 1 applic TOPICAL DAILY 06/16/18 08/18/18 clonazepam 0.125 mg disintegrating 0.125 mg PO as directed #20 tab 06/21/18 08/18/18 tablet aluminum-mag hydroxide-simethicone 5 ml PO ONCE PRN 07/05/18 08/18/18 200 mg-200 mg-20 mg/5 mL oral susp calamine lotion applic TP PRN 07/05/18 08/03/18 olanzapine 5 mg tablet 2.5 mg PO HS tab-cap 07/05/18 08/18/18 topiramate 100 mg tablet 100 mg PO BID #60 tab-cap 07/18/18 08/18/18 perampanel [Fycompa] 8 mg PO HS 08/02/18 08/18/18 topiramate 100 mg FEEDING TUBE BID 08/02/18 08/18/18 lacosamide 50 mg tablet 50 mg PO BID #60 tab 08/10/18 08/18/18 Previous Rx's Medication Instructions Recorded levothyroxine 100 mcg PO DAILY@0730 tab 06/19/16 clonazepam 0.125 mg disintegrating 0.125 mg PO as directed #20 tab 06/21/18 tablet topiramate 100 mg tablet 100 mg PO BID #60 tab-cap 07/18/18 lacosamide 50 mg tablet 50 mg PO BID #60 tab 08/10/18 Allergies Allergy/AdvReac Type Severity Reaction Status Date / Time No Known Allergies Allergy Verified 08/18/18 14:48 General Stated Complaint: Seizure COMPA: 3 Review of Systems Review of Systems All systems reviewed & are unremarkable except as noted in HPI and below Constitutional Denies fever(s) ENT Denies change in voice Cardiovascular Denies dyspnea Respiratory Denies dyspnea Gastrointestinal Denies vomiting Musculoskeletal Denies joint swelling Integumentary/Breasts Denies rash PFSH Seizures (Acute 04/25/15) Endocervical polyp (Acute 02/11/17) Early onset Alzheimer's disease with behavioral disturbance (Acute 03/22/18) Down syndrome (Acute 03/22/18) Dementia Down's syndrome Hyperlipemia Hypothyroid Incontinence of bowel Incontinence of urine Seizure disorder Family History Brother No problems noted. Family History Brother No problems noted. 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 (Acute 03/22/18) Down syndrome (Acute 03/22/18) Dementia Down's syndrome Hyperlipemia Hypothyroid Incontinence of bowel Incontinence of urine Seizure disorder Social History adopted: No caregiver/support person: Yes foster care: No household members: caregiver housing: assisted living facility lives independently: No number of children: 0 number of grandchildren: 0 skilled nursing: No current occupational status: disabled pets and animals: No Smoking/Tobacco Use Status: Never Social History adopted: No caregiver/support person: Yes foster care: No household members: caregiver housing: assisted living facility lives independently: No number of children: 0 number of grandchildren: 0 skilled nursing: No current occupational status: disabled pets and animals: No Smoking/Tobacco Use Status: Never Exam Const General: no acute distress Orientation: alert HENMT Ears: external ears normal General nose exam: external nose normal Mouth: moist mucous membranes Eyes General: appearance normal, both eyes and all related structures Neck Neck: normal visual inspection Resp Effort & Inspection: normal respiratory effort and able to speak in complete sentences Cardio Rate: regular rate Skin General skin exam: no rashes or lesions noted Neuro General: alert Extrem General: normal to inspection Course Vital Signs Temperature 37.2 C 08/18/18 14:41 Pulse 71 08/18/18 14:41 Respiratory Rate 16 08/18/18 14:41 Blood Pressure 121/62 08/18/18 14:41 Pulse Oximetry 96 08/18/18 14:41 Temperature 37.2 C 08/18/18 14:41 Temperature Source Skin 08/18/18 14:41 Pulse 71 08/18/18 14:41 Respiratory Rate 16 08/18/18 14:41 Respiratory Effort Non-Labored 08/18/18 14:51 Respiratory Depth Normal 08/18/18 14:51 Respiratory Pattern Normal 08/18/18 14:51 Blood Pressure 121/62 08/18/18 14:41 Blood Pressure Position Sitting 08/18/18 14:41 Pulse Oximetry 96 08/18/18 14:41 Oxygen Delivery Method Room Air 08/18/18 14:41 Oxygen Flow Rate 0 08/18/18 14:41 Pain Level 0 08/18/18 14:41
--- NOTE | 2018-08-18 15:03 | ED.GENADUL_ITS ---
Discharge Plan Disposition Patient Disposition: HOME Condition: Stable Discharge Details Chief Complaint: Seizure Clinical Impression: Seizures Reason For Visit: LILIYAEX Primary Care Provider: Andie Redman ED Provider: Robert Connor [place] Meds and New Rx's Prescriptions: Continue topiramate [Topamax] 100 mg tablet 100 mg PO BID Qty: 60 RF: 11 calamine lotion TP PRN RF: 0 alum-mag hydroxide-simeth 200-200-20 mg/5 mL suspension 5 ml PO ONCE PRN (Reason: indigestion) RF: 0 olanzapine 5 mg tablet 2.5 mg PO HS RF: 0 acetaminophen 325 MG tablet 650 mg PO Q4H PRN RF: 0 carbamide peroxide [Ear Wax Treatment] 15 ML drops 4 drp Otic PRN RF: 0 polyethylene glycol 3350 [Miralax] 17 GM powder in packet 17 gm PO DAILY PRNRF: 0 CLORTRIMAZOLE 1 % Topical BID RF: 0 dimethicone-zinc oxide [Leann Protect] 57 GM cream 57 gm Topical PRN RF: 0 A&D ointment Topical DAILY RF: 0 hydrocortisone 28.35 GM cream 1 applic Topical DIRECTED RF: 0 bacitracin 3.5 GM ointment 3.5 gm DIRECTED RF: 0 psyllium husk (with sugar) [Metamucil (with sugar)] 575 GM powder 1 gm PO 1 TSB QD RF: 0 trazodone 50 MG tablet 75 mg PO HS RF: 0 diphenhydramine HCl [Benadryl] 25 MG capsule 25 mg PO Q6H PRN RF: 0 carbamide peroxide [Debrox] 15 ML drops 15 ml Otic HS RF: 0 lanolin-mineral oil [Eucerin Original] 500 ML lotion 500 ml Topical BID RF: 0 calcium carbonate-simethicone [Maalox Advanced] 1 EACH tablet,chewable 1 ea PO DIRECTED RF: 0 clonazepam 0.125 mg tablet,disintegrating 0.125 mg PO as directed Qty: 20 RF: 1 lacosamide [Vimpat] 50 mg tablet 50 mg PO BID Qty: 60 RF: 3 calcium carbonate-vitamin D3 1 EACH tablet 1 ea PO DAILY RF: 0 levothyroxine 100 MCG tablet 100 mcg PO DAILY@0730 RF: 0 Bifidobacterium infantis [Align] 4 MG capsule 4 mg PO DAILY RF: 0 metronidazole [Metrogel Vaginal] 70 GM gel 1 applic VG DAILY RF: 0 docusate sodium [Colace] 100 mg Capsule 100 mg PO DAILY RF: 0 metronidazole 1 % Cream 1 applic TOPICAL DAILY RF: 0 guaifenesin 200 mg/5 mL Liquid 400 mg PO Q4H PRNRF: 0 topiramate 100 mg Tablet 100 mg Feeding Tube BID RF: 0 perampanel [Fycompa] 8 mg tablet 8 mg PO HS RF: 0 Discharge Instructions Additional Instructions: If she has a seizure that lasts less than 15 minutes, or if she has a seizure lasting longer than this and is given klonopin but is at baseline by the time EMS gets to the house she doesn't need to come to the emegency department Follow up with her primary care provider in 1-2 weeks If she has fevers, persistent vomit or appears ill to you return to the emergency department for evaluation Medical Decision Making 58 yo female with hx of Downs, frequent partial seizures, who comes in after a seizure. She has episodes where she stares and blninks and has brisk movements of her extremities. This happened today lasting about 8 or so minutes per career orientation teacher, was given prn klonopin and resolved the seizure but per their protocol if seizure lasting more than 5 minutes she needs to come here. Is sitting in bed playing with a purse without complaints in no distress. Has had negative workups recently with normal electrolytes so do not feel additional workup needed here. ADvised they can wait longer before coming here since by the time EMS gets to her she is normally at baseline. Will have her f/u with pcp and return precautions given Differential Diagnosis seizure disorder, partial seizure HPI General Mode of arrival: EMS . Date/Time Provider Initiated Documentation: 08/18/18 14:47 . Information obtained by: family (career orientation teacher) . History of Present Illness 58 year old F presents to the emergency department with the chief complaint of seizure, Patient reports no radiation. Patient started experiencing this minute(s) (30) and it has been now resolved. No relieving factors improve symptom(s), No exacerbating factors reported . Related Data Home Medications Medication Instructions Recorded Confirmed acetaminophen 650 mg PO Q4H PRN tab-cap NS 10/23/13 08/18/18 carbamide peroxide [Ear Wax 4 drp OTIC PRN script NS 10/23/13 08/18/18 Treatment] Clortrimazole 1 % TOPICAL BID 04/25/15 08/18/18 polyethylene glycol 3350 [Miralax] 17 gm PO DAILY PRN gm 04/25/15 08/18/18 calcium carbonate-vitamin D3 1 ea PO DAILY 05/14/16 08/03/18 levothyroxine 100 mcg PO DAILY@0730 tab 06/19/16 08/18/18 Bifidobacterium infantis [Align] 4 mg PO DAILY 02/25/17 08/18/18 metronidazole [Metrogel Vaginal] 1 applic VG DAILY 02/25/17 08/03/18 dimethicone-zinc oxide [Leann 57 gm TOPICAL PRN 03/02/17 08/18/18 Protect] bacitracin 3.5 gm DIRECTED 12/16/17 08/18/18 hydrocortisone 1 applic TOPICAL DIRECTED gm 12/16/17 08/18/18 psyllium husk (with sugar) 1 gm PO 1 TSB QD 12/16/17 08/18/18 [Metamucil (with sugar)] calcium carbonate-simethicone 1 ea PO DIRECTED tab.chew 03/22/18 08/18/18 [Maalox Advanced] carbamide peroxide [Debrox] 15 ml OTIC HS script 03/22/18 08/18/18 diphenhydramine HCl [Benadryl] 25 mg PO Q6H PRN tab-cap 03/22/18 08/18/18 lanolin-mineral oil [Eucerin 500 ml TOPICAL BID 03/22/18 08/18/18 Original] trazodone 75 mg PO HS tab-cap 03/22/18 08/18/18 docusate sodium [Colace] 100 mg PO DAILY 06/16/18 08/18/18 guaifenesin 400 mg PO Q4H PRN 06/16/18 08/18/18 metronidazole 1 applic TOPICAL DAILY 06/16/18 08/18/18 clonazepam 0.125 mg disintegrating 0.125 mg PO as directed #20 tab 06/21/1802/28 tablet aluminum-mag hydroxide-simethicone 5 ml PO ONCE PRN 07/05/18 08/18/18 200 mg-200 mg-20 mg/5 mL oral susp calamine lotion applic TP PRN 07/05/18 08/03/18 olanzapine 5 mg tablet 2.5 mg PO HS tab-cap 07/05/18 08/18/18 topiramate 100 mg tablet 100 mg PO BID #60 tab-cap 07/18/18 08/18/18 perampanel [Fycompa] 8 mg PO HS 08/02/18 08/18/18 topiramate 100 mg FEEDING TUBE BID 08/02/18 08/18/18 lacosamide 50 mg tablet 50 mg PO BID #60 tab 08/10/18 08/18/18 Previous Rx's Medication Instructions Recorded levothyroxine 100 mcg PO DAILY@0730 tab 06/19/16 clonazepam 0.125 mg disintegrating 0.125 mg PO as directed #20 tab 06/21/18 tablet topiramate 100 mg tablet 100 mg PO BID #60 tab-cap 07/18/18 lacosamide 50 mg tablet 50 mg PO BID #60 tab 08/10/18 Allergies Allergy/AdvReac Type Severity Reaction Status Date / Time No Known Allergies Allergy Verified 08/18/18 14:48 General Stated Complaint: Seizure COMAP: 3 Review of Systems Review of Systems All systems reviewed & are unremarkable except as noted in HPI and below Constitutional Denies fever(s) ENT Denies change in voice Cardiovascular Denies dyspnea Respiratory Denies dyspnea Gastrointestinal Denies vomiting Musculoskeletal Denies joint swelling Integumentary/Breasts Denies rash PFSH Seizures (Acute 04/25/15) Endocervical polyp (Acute 02/11/17) Early onset Alzheimer's disease with behavioral disturbance (Acute 03/22/18) Down syndrome (Acute 03/22/18) Dementia Down's syndrome Hyperlipemia Hypothyroid Incontinence of bowel Incontinence of urine Seizure disorder Family History Brother No problems noted. Family History Brother No problems noted. 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 (Acute 03/22/18) Down syndrome (Acute 03/22/18) Dementia Down's syndrome Hyperlipemia Hypothyroid Incontinence of bowel Incontinence of urine Seizure disorder Social History adopted: No caregiver/support person: Yes foster care: No household members: caregiver housing: assisted living facility lives independently: No number of children: 0 number of grandchildren: 0 fdc: No current occupational status: disabled pets and animals: No Smoking/Tobacco Use Status: Never Social History adopted: No caregiver/support person: Yes foster care: No household members: caregiver housing: assisted living facility lives independently: No number of children: 0 number of grandchildren: 0 fdc: No current occupational status: disabled pets and animals: No Smoking/Tobacco Use Status: Never Exam Const General: no acute distress Orientation: alert HENMT Ears: external ears normal General nose exam: external nose normal Mouth: moist mucous membranes Eyes General: appearance normal, both eyes and all related structures Neck Neck: normal visual inspection Resp Effort & Inspection: normal respiratory effort and able to speak in complete sentences Cardio Rate: regular rate Skin General skin exam: no rashes or lesions noted Neuro General: alert Extrem General: normal to inspection Course Vital Signs Temperature 37.2 C 08/18/18 14:41 Pulse 71 08/18/18 14:41 Respiratory Rate 16 08/18/18 14:41 Blood Pressure 121/62 08/18/18 14:41 Pulse Oximetry 96 08/18/18 14:41 Temperature 37.2 C 08/18/18 14:41 Temperature Source Skin 08/18/18 14:41 Pulse 71 08/18/18 14:41 Respiratory Rate 16 08/18/18 14:41 Respiratory Effort Non-Labored 08/18/18 14:51 Respiratory Depth Normal 08/18/18 14:51 Respiratory Pattern Normal 08/18/18 14:51 Blood Pressure 121/62 08/18/18 14:41 Blood Pressure Position Sitting 08/18/18 14:41 Pulse Oximetry 96 08/18/18 14:41 Oxygen Delivery Method Room Air 08/18/18 14:41 Oxygen Flow Rate 0 08/18/18 14:41 Pain Level 0 08/18/18 14:41
[2018-08-18 15:19] VITALS: BP 118/76; PULSE 72; RESP 18; O2SAT 98
== END 2018-08-18 15:17 | disposition home or self-care (01) ==
LOC: ER 15:33
PROVIDERS: Emergency Provider Emergency Medicine; PCP Nurse Practitioner Family
DX: G40.909 Epilepsy, unspecified, not intractable, without status epilepticus (principal); I10 Essential (primary) hypertension; Q90.9 Down syndrome, unspecified
CPT/HCPCS: 99284; 99283

== ENCOUNTER 2018-08-20 09:46 | Emergency (ER) | payer MEDICARE, MEDICAID, SELFPAY ==
[2018-08-20 09:47] VITALS: BP 93/63; PULSE 57; RESP 16; TEMP 37.2; O2SAT 97
--- NOTE | 2018-08-20 09:56 | ED.GENADUL_ITS ---
Discharge Plan Disposition Patient Disposition: HOME Discharge Details Chief Complaint: Seizure Clinical Impression: Seizures Primary Care Provider: Andie Redman ED Provider: Chavo Vasquez Home Meds and New Rx's Prescriptions: Continue topiramate [Topamax] 100 mg tablet 100 mg PO BID Qty: 60 RF: 11 calamine lotion TP PRN RF: 0 alum-mag hydroxide-simeth 200-200-20 mg/5 mL suspension 5 ml PO ONCE PRN (Reason: indigestion) RF: 0 olanzapine 5 mg tablet 2.5 mg PO HS RF: 0 acetaminophen 325 MG tablet 650 mg PO Q4H PRN RF: 0 carbamide peroxide [Ear Wax Treatment] 15 ML drops 4 drp Otic PRN RF: 0 polyethylene glycol 3350 [Miralax] 17 GM powder in packet 17 gm PO DAILY PRNRF: 0 CLORTRIMAZOLE 1 % Topical BID RF: 0 dimethicone-zinc oxide [Leann Protect] 57 GM cream 57 gm Topical PRN RF: 0 A&D ointment Topical DAILY RF: 0 hydrocortisone 28.35 GM cream 1 applic Topical DIRECTED RF: 0 bacitracin 3.5 GM ointment 3.5 gm DIRECTED RF: 0 psyllium husk (with sugar) [Metamucil (with sugar)] 575 GM powder 1 gm PO 1 TSB QD RF: 0 trazodone 50 MG tablet 75 mg PO HS RF: 0 diphenhydramine HCl [Benadryl] 25 MG capsule 25 mg PO Q6H PRN RF: 0 lanolin-mineral oil [Eucerin Original] 500 ML lotion 500 ml Topical BID RF: 0 calcium carbonate-simethicone [Maalox Advanced] 1 EACH tablet,chewable 1 ea PO DIRECTED RF: 0 clonazepam 0.125 mg tablet,disintegrating 0.125 mg PO as directed Qty: 20 RF: 1 lacosamide [Vimpat] 50 mg tablet 50 mg PO BID Qty: 60 RF: 3 calcium carbonate-vitamin D3 1 EACH tablet 1 ea PO DAILY RF: 0 levothyroxine 100 MCG tablet 100 mcg PO DAILY@0730 RF: 0 Bifidobacterium infantis [Align] 4 MG capsule 4 mg PO DAILY RF: 0 metronidazole [Metrogel Vaginal] 70 GM gel 1 applic VG DAILY RF: 0 docusate sodium [Colace] 100 mg Capsule 100 mg PO DAILY RF: 0 metronidazole 1 % Cream 1 applic TOPICAL DAILY RF: 0 perampanel [Fycompa] 8 mg tablet 8 mg PO HS RF: 0 ondansetron HCl 4 mg Tablet 4 mg PO QID PRNRF: 0 loperamide 1 mg/5 mL Liquid 4 mg PO DAILY PRNRF: 0 magnesium hydroxide [Milk of Magnesia] 400 mg/5 mL Suspension 15 ml PO DAILY PRNRF: 0 No Action guaifenesin 200 mg/5 mL Liquid 400 mg PO Q4H PRNRF: 0 Discharge Instructions Instructions: Recurrent Seizures in Adults (ED) Additional Instructions: Please contact your primary care physician and neurology to arrange follow-up. Return to the ER for any worsening or new concerning symptoms. Referrals: Andie Redman [Primary Care Provider] - Ayse Villafana MD [ [facility] STAFF PHYSICIAN] - Discharge Data Discharge Date/Time-TO BE ENTERED AT DEPARTURE: 08/20/18 10:37 Medical Decision Making 58-year-old female with seizure disorder, Down syndrome, Alzheimer's, frequently seen for her seizures, followed by neurology, here after seizure lasting 6 minutes today that responded after Lorazepam sublingual was administered. Patient is now returned to baseline mentation. No persistent seizure activity noted. I called and spoke with the patient's neurologist, Dr. Lentz, who notes that antiepileptic medications were recently increased. She is following the patient closely and will continue to monitor medication and increase as appropriate. She does recommend discharge back to senior living and agrees with plan to trial rectal Diastat 5 mg instead of the oral sublingual given difficult disintegration in the absorption of oral medication. Spoke with the patient's caregiver about the discharge treatment plan. I specifically advise close outpatient follow-up with neurology. Disposition decision was made weighing the risks and benefits of hospitalization versus outpatient treatment, and the risk for further decompensation. The patient was stable at time of discharge. Prior to discharge, my usual and customary return precautions were reviewed with the patient's caregiver - this included follow-up instructions and reason to return to the emergency department if condition worsens, does not improve as expected, or other new concerns arise. HPI General Mode of arrival: EMS . Date/Time Provider Initiated Documentation: 08/20/18 10:18 . Limitations to Documentation: altered mental status . Information obtained by: EMS . HPI Narrative: 58-year-old female with history of seizure disorder, early onset Alzheimer's, Down syndrome, presents with EMS with seizure. History and review of systems are limited secondary to altered mentation. Patient's home range mechanic is here with her and notes that she experienced a generalized seizure early this morning that lasted about 2 minutes and resolved with a dose of clonazepam sublingual. She had a second seizure just prior to arrival that lasted approximately 6 minutes. She was given #4 0.125 mg clonazepam sublingual. Seizure ceased. Per their protocol, they are instructed to call EMS if seizure lasts greater than 5-minutes. Per the range mechanic, patient has been taking medication as prescribed. They do note that clonazepam SL does not dissolve well in the patient's mouth. Related Data Home Medications Medication Instructions Recorded Confirmed acetaminophen 650 mg PO Q4H PRN tab-cap NS 10/23/13 08/20/18 carbamide peroxide [Ear Wax 4 drp OTIC PRN script NS 10/23/13 08/20/18 Treatment] Clortrimazole 1 % TOPICAL BID 04/25/15 08/20/18 polyethylene glycol 3350 [Miralax] 17 gm PO DAILY PRN gm 04/25/15 08/20/18 calcium carbonate-vitamin D3 1 ea PO DAILY 05/14/16 08/20/18 levothyroxine 100 mcg PO DAILY@0730 tab 06/19/16 08/20/18 Bifidobacterium infantis [Align] 4 mg PO DAILY 02/25/17 08/20/18 metronidazole [Metrogel Vaginal] 1 applic VG DAILY 02/25/17 08/20/18 dimethicone-zinc oxide [Leann 57 gm TOPICAL PRN 03/02/17 08/20/18 Protect] bacitracin 3.5 gm DIRECTED 12/16/17 08/20/18 hydrocortisone 1 applic TOPICAL DIRECTED gm 12/16/17 08/20/18 psyllium husk (with sugar) 1 gm PO 1 TSB QD 12/16/17 08/20/18 [Metamucil (with sugar)] calcium carbonate-simethicone 1 ea PO DIRECTED tab.chew 03/22/18 08/20/18 [Maalox Advanced] diphenhydramine HCl [Benadryl] 25 mg PO Q6H PRN tab-cap 03/22/18 08/20/18 lanolin-mineral oil [Eucerin 500 ml TOPICAL BID 03/22/18 08/20/18 Original] trazodone 75 mg PO HS tab-cap 03/22/18 08/20/18 docusate sodium [Colace] 100 mg PO DAILY 06/16/18 08/20/18 guaifenesin 400 mg PO Q4H PRN 06/16/18 08/20/18 metronidazole 1 applic TOPICAL DAILY 06/16/18 08/20/18 clonazepam 0.125 mg disintegrating 0.125 mg PO as directed #20 tab 06/21/1804/30 tablet aluminum-mag hydroxide-simethicone 5 ml PO ONCE PRN 07/05/18 08/20/18 200 mg-200 mg-20 mg/5 mL oral susp calamine lotion applic TP PRN 07/05/18 08/03/18 olanzapine 5 mg tablet 2.5 mg PO HS tab-cap 07/05/18 08/20/18 topiramate 100 mg tablet 100 mg PO BID #60 tab-cap 07/18/18 08/20/18 perampanel [Fycompa] 8 mg PO HS 08/02/18 08/20/18 lacosamide 50 mg tablet 50 mg PO BID #60 tab 08/10/18 08/20/18 loperamide 4 mg PO DAILY PRN 08/20/18 08/20/18 magnesium hydroxide [Milk of 15 ml PO DAILY PRN 08/20/18 08/20/18 Magnesia] ondansetron HCl 4 mg PO QID PRN 08/20/18 08/20/18 Previous Rx's Medication Instructions Recorded levothyroxine 100 mcg PO DAILY@0730 tab 06/19/16 clonazepam 0.125 mg disintegrating 0.125 mg PO as directed #20 tab 06/21/18 tablet topiramate 100 mg tablet 100 mg PO BID #60 tab-cap 07/18/18 lacosamide 50 mg tablet 50 mg PO BID #60 tab 08/10/18 Allergies Allergy/AdvReac Type Severity Reaction Status Date / Time No Known Allergies Allergy Verified 08/20/18 09:55 General Stated Complaint: Seizure COMPA: 3 Review of Systems Constitutional Denies fever(s) Neurologic Reports as per HPI PFSH Seizures (Acute 04/25/15) Endocervical polyp (Acute 02/11/17) Early onset Alzheimer's disease with behavioral disturbance (Acute 03/22/18) Down syndrome (Acute 03/22/18) Dementia Down's syndrome Hyperlipemia Hypothyroid Incontinence of bowel Incontinence of urine Seizure disorder Social History adopted: No caregiver/support person: Yes foster care: No household members: caregiver housing: assisted living facility lives independently: No number of children: 0 number of grandchildren: 0 intermediate: No current occupational status: disabled pets and animals: No Smoking/Tobacco Use Status: Never Exam Const General: cooperative and no acute distress HENMT Head: normocephalic and atraumatic Mouth: moist mucous membranes Eyes Conjunctivae: normal conjunctivae Sclera: normal sclerae EOM: EOM intact bilaterally Neck Neck: trachea midline and supple Resp Auscultation: clear to auscultation bilaterally, no rales, no rhonchi and no wheezes Cardio Jugular venous pressure: no JVD Rate: regular rate and not tachycardic Rhythm: regular rhythm GI Palpation: soft, not firm, no guarding, no masses, not rigid and nontender Skin General skin exam: no rashes or lesions noted Neuro General: alert, awake, tone normal and other (no siezure activity) Cognition: abnormal cognition Extrem General: no edema Psych Appearance: grossly normal Course Vital Signs Temperature 37.2 C 08/20/18 09:47 Pulse 57 L 08/20/18 09:47 Respiratory Rate 16 08/20/18 09:47 Blood Pressure 93/63 L 08/20/18 09:47 Pulse Oximetry 97 08/20/18 09:47 Temperature 37.2 C 08/20/18 09:47 Temperature Source Temporal Artery Scan 08/20/18 09:47 Pulse 57 L 08/20/18 09:47 Respiratory Rate 16 08/20/18 09:47 Respiratory Effort Non-Labored 08/20/18 09:52 Blood Pressure 93/63 L 08/20/18 09:47 Pulse Oximetry 97 08/20/18 09:47 Oxygen Delivery Method Room Air 08/20/18 09:47 Oxygen Flow Rate 0 08/20/18 09:47 Pain Level 0 08/20/18 09:47
[2018-08-20 10:44] VITALS: BP 106/65; PULSE 58; RESP 12; TEMP 37; O2SAT 96
== END 2018-08-20 10:37 | disposition home or self-care (01) ==
PROVIDERS: Emergency Provider Student in an Organized Health Care Education/Training Program; PCP Nurse Practitioner Family
DX: G40.909 Epilepsy, unspecified, not intractable, without status epilepticus (principal); Q90.9 Down syndrome, unspecified; I10 Essential (primary) hypertension
CPT/HCPCS: 99283

== ENCOUNTER 2018-11-11 13:04 | Outpatient (REF) | payer MEDICARE, MEDICAID, SELFPAY ==
[2018-11-11 14:43] LABS: Bilirubin Negative (Negative); Blood Negative (Negative); Clarity Clear; Glucose Negative (Negative); Ketones Negative (Negative); Leukocyte Esterase Trace (Negative); Nitrite Negative (Negative); Urobilinogen 0.2 EU/dL (Up TO 0.2); pH 7.5 (5-8)
[2018-11-11 15:16] LABS: Bacteria Few HPF (Negative); C & S Indicated? C&S Done As Ordered; Casts Negative LPF (Negative); Crystals Negative HPF (Negative); Epithelial Cells Few HPF (Negative); Mucus Negative (Negative); RBC Negative (0-2); WBC 0-2 HPF (0-5)
== END 2018-11-11 13:24 ==
LOC: NCHCN 13:04
PROVIDERS: PCP Nurse Practitioner Family; Visit Provider Family Medicine
DX: R32 Unspecified urinary incontinence (principal); R56.9 Unspecified convulsions
CPT/HCPCS: 81003; 81015; 87086

== ENCOUNTER 2018-12-29 14:41 | Outpatient (REF) | payer MEDICARE, MEDICAID, SELFPAY ==
[2018-12-29 21:08] LABS: TSH (W/Ref FT4) 9.32 uIU/mL (0.358-3.74)
[2018-12-29 22:16] LABS: FREE T4 0.94 ng/dL (0.76-1.46)
== END 2018-12-29 15:01 ==
LOC: NCHCN 14:41
PROVIDERS: PCP Nurse Practitioner Family; Visit Provider Nurse Practitioner Family
DX: E03.9 Hypothyroidism, unspecified (principal); E78.5 Hyperlipidemia, unspecified; R56.9 Unspecified convulsions; E87.1 Hypo-osmolality and hyponatremia; R00.1 Bradycardia, unspecified
CPT/HCPCS: 84439; 84443

== ENCOUNTER 2019-02-07 11:24 | Outpatient (REF) | payer MEDICARE, MEDICAID, SELFPAY ==
[2019-02-07 13:33] LABS: ALT 46 U/L (12-78); AST 30 U/L (15-37); Albumin 3.1 g/dL (3.4-5.0); Alkaline Phosphatase 92 U/L (46-116); Anion Gap 11.5 mmol/L (3-11); BUN 10 mg/dL (7-18); Bilirubin, Total 0.3 mg/dL (0.2-1.0); CO2 23.5 mmol/L (21.0-32.0); CREATININE 0.87 mg/dL (0.55-1.02); Calcium 8.7 mg/dL (8.5-10.1); Chloride 106 mmol/L (98-107); Glucose 88 mg/dL (70-100); Potassium 3.5 mmol/L (3.5-5.1); Sodium 141 mmol/L (136-145); TSH (W/Ref FT4) 0.61 uIU/mL (0.358-3.74); Total Protein 6.4 g/dL (6.4-8.2)
== END 2019-02-07 11:44 ==
LOC: NCHCN 11:24
PROVIDERS: PCP Nurse Practitioner Family; Visit Provider Nurse Practitioner Family
DX: E03.9 Hypothyroidism, unspecified (principal); R19.8 Other specified symptoms and signs involving the digestive system and abdomen; G81.90 Hemiplegia, unspecified affecting unspecified side
CPT/HCPCS: 80053; 84443

== ENCOUNTER 2019-02-09 19:30 | Outpatient (REF) | payer MEDICARE, MEDICAID, SELFPAY ==
[2019-02-11 12:54] LABS: Campylobacter PCR SEE COMMENTS; Salmonella PCR SEE COMMENTS; Shiga Toxin PCR SEE COMMENTS; Shigella/Enteroinvasive Ecoli SEE COMMENTS
== END 2019-02-09 19:50 ==
LOC: NCHCN 19:30
PROVIDERS: PCP Nurse Practitioner Family; Visit Provider Nurse Practitioner Family
DX: R19.8 Other specified symptoms and signs involving the digestive system and abdomen (principal)
CPT/HCPCS: 87505; 87177; 87324